=== PATIENT | male | born 1970 | race Caucasian/White ===

== ENCOUNTER 2018-07-11 00:01 | Emergency (ER) | payer OTHER ==
[~2018-07-11] VITALS: Ht 177.8 cm; Wt 134.0 kg
[2018-07-11 00:04] VITALS: TEMP 37; Ht 177.8 cm; Wt 134.0 kg
[2018-07-11] MEDS ORDERED: SODIUM CHLORIDE 0.9% 1000ML 1,000 ML IV STA (00:26)
[2018-07-11 00:51] LABS: BASO % 0.4 %; BASO ABS # 0.03 K/uL (0-0.2); EOS % 1.9 %; EOS ABS # 0.14 K/uL (0-0.5); HEMATOCRIT 46.7 % (42-52); HEMOGLOBIN 16.5 g/dL (14.0-18.0); IG# 0.04 K/uL (0.00-0.02); LYMPH ABS # 2.17 K/uL (1.2-3.4); MEAN CORPUSCULAR HEMOGLOBIN 30.4 pg (25-34); MEAN CORPUSCULAR HGB CONC 35.3 g/dl (32-36); MEAN PLATELET VOLUME 9.9 fL (7.4-10.4); MONO % 5.3 %; NEUT % 62.9 %; NEUT ABS # 4.71 K/uL (1.4-6.5); PLATELET COUNT 207 K/uL (130-400); RED CELL DISTRIBUTION WIDTH SD 40.5 fL (36.4-46.3); WHITE BLOOD COUNT 7.49 K/uL (4.8-10.8)
[2018-07-11 01:19] LABS: ALBUMIN 3.3 gm/dl (3.4-5.0); ALKALINE PHOSPHATASE 74 U/L (45-117); ALT/SGPT 34 U/L (12-78); AST/SGOT 15 U/L (15-37); BLOOD UREA NITROGEN 14 mg/dl (7-18); CALCIUM 8.6 mg/dl (8.5-10.1); CARBON DIOXIDE 21 mmol/L (21-32); CREATININE 0.86 mg/dl (0.60-1.40); GLUCOSE 347 mg/dl (70-99); LIPASE 151 U/L (73-393); POTASSIUM 3.7 mmol/L (3.5-5.1); SODIUM 138 mmol/L (136-145); TOTAL PROTEIN 7.3 gm/dl (6.4-8.2)
--- NOTE | 2018-07-11 04:49 | EMERGENCY ROOM VISIT NOTE ---
History First contact with patient: 00:13 Chief Complaint: HYPERGLYCEMIA Stated Complaint: HIGH BLOOD SUGAR Nursing Triage Summary: patient BSG at work was 315. patient states he has no medication to take for his diabetes. patient moved here from [place] six months ago and never got a fmd to manage his diabetes. patient thinks he took metformin previously. History of Present Illness The patient is a 48 year old male who presents to the Emergency Room with complaints of feeling lightheaded who has been out of his blood pressure and diabetes meds for past 6 months. 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 He did not get in with family care to renew his medications. He checked his blood sugar at the present was 300. He did this as he felt lightheaded. Patient denies chest pain, dyspnea, fever, chills, cough, congestion, abdominal pain, polydipsia, polyuria, leg pain or swelling, flulike illness. He is tolerating p.o. fluids and food. Patient is unsure what medications he was taking. Review of Systems An 10 system review of systems was completed with positives and pertinent negatives listed in the HPI. Past Medical/Surgical History Hypertension, diabetes, hernia repair Social History Smoking Status: Never Smoker Smokeless Tobacco Use: No Alcohol Use: occasionally Drug Use: none Marital Status: single Occupation Status: employed Current/Historical Medications No Active Prescriptions or Reported Meds Physical Exam Vital Signs Date Time Temp Pulse Resp B/P (MAP) Pulse Ox O2 Delivery O2 Flow Rate FiO2 07/11/18 04:19 79 18 172/89 97 Room Air 07/11/18 02:31 84 18 152/75 98 Room Air 07/11/18 01:19 99 18 153/99 97 Room Air 07/11/18 01:05 89 07/11/18 00:04 37.0 20 96 168/99 96 Room Air Physical Exam VITALS: Vitals are noted on the nurse's note and reviewed by myself. Vital signs hypertensive. GENERAL: White male answering questions appropriately, in no acute distress, nondiaphoretic, well-developed well-nourished. SKIN: The skin was without rashes, erythema, edema, or bruising. There is no tenting of the skin. Capillary reflex less than 2 seconds. HEAD: Normocephalic atraumatic. EARS: External auditory canals clear, tympanic membranes pearly pritchard without erythema or effusion bilaterally. EYES: Pupils equal round and reactive to light and accommodation. Conjunctivae without injection, sclerae without icterus. Extraocular movements intact. NOSE: Patent, turbinates without inflammation or discharge. No sinus tenderness. MOUTH: Mucous membranes moist. Pharynx without erythema or exudate. Uvula midline. Airway patent. Tongue does not deviate. NECK: Supple without nuchal rigidity. No lymphadenopathy. No thyromegaly. Cervical spine is nontender. No JVD. HEART: Regular rate and rhythm LUNGS: Clear to auscultation bilaterally without wheezes, rales or rhonchi. No retractions or accessory muscle use. ABDOMEN: Positive bowel sounds x 4. Normal tympanic percussion. Soft, protuberant, obese, nontender, without masses or organomegaly. Holguin sign negative. No guarding or rebound tenderness. No CVA tenderness MUSCULOSKELETAL: No muscle atrophy, erythema, or edema noted. NEURO: Patient was alert and oriented to person place and time. Normal sensation to light and sharp touch. No focal neurological deficits. Medical Decision & Procedures Laboratory Results 07/11/18 00:37 Red Blood Count 5.43, Mean Corpuscular Volume 86.0, Mean Corpuscular Hemoglobin 30.4, Mean Corpuscular Hemoglobin Concent 35.3, Mean Platelet Volume 9.9, Neutrophils (%) (Auto) 62.9, Lymphocytes (%) (Auto) 29.0, Monocytes (%) (Auto) 5.3, Eosinophils (%) (Auto) 1.9, Basophils (%) (Auto) 0.4, Neutrophils # (Auto) 4.71, Lymphocytes # (Auto) 2.17, Monocytes # (Auto) 0.40, Eosinophils # (Auto) 0.14, Basophils # (Auto) 0.03 07/11/18 00:37 Test 07/11/18 00:37 07/11/18 02:28 07/11/18 02:54 07/11/18 03:48 White Blood Count 7.49 K/uL (4.8-10.8) Red Blood Count 5.43 M/uL (4.7-6.1) Hemoglobin 16.5 g/dL (14.0-18.0) Hematocrit 46.7 % (42-52) Mean Corpuscular Volume 86.0 fL (80-100) Mean Corpuscular Hemoglobin 30.4 pg (25-34) Mean Corpuscular Hemoglobin Concent 35.3 g/dl (32-36) Platelet Count 207 K/uL (130-400) Mean Platelet Volume 9.9 fL (7.4-10.4) Neutrophils (%) (Auto) 62.9 % Lymphocytes (%) (Auto) 29.0 % Monocytes (%) (Auto) 5.3 % Eosinophils (%) (Auto) 1.9 % Basophils (%) (Auto) 0.4 % Neutrophils # (Auto) 4.71 K/uL (1.4-6.5) Lymphocytes # (Auto) 2.17 K/uL (1.2-3.4) Monocytes # (Auto) 0.40 K/uL (0.11-0.59) Eosinophils # (Auto) 0.14 K/uL (0-0.5) Basophils # (Auto) 0.03 K/uL (0-0.2) RDW Standard Deviation 40.5 fL (36.4-46.3) RDW Coefficient of Variation 13.0 % (11.5-14.5) Immature Granulocyte % (Auto) 0.5 % Immature Granulocyte # (Auto) 0.04 K/uL (0.00-0.02) Anion Gap 13.0 mmol/L (3-11) Est Creatinine Clear Calc Drug Dose 143.1 ml/min Estimated GFR () 118.0 Estimated GFR (Non- 101.8 BUN/Creatinine Ratio 15.8 (10-20) Calcium Level 8.6 mg/dl (8.5-10.1) Total Bilirubin 0.5 mg/dl (0.2-1) Direct Bilirubin 0.1 mg/dl (0-0.2) Aspartate Amino Transf (AST/SGOT) 15 U/L (15-37) Alanine Aminotransferase (ALT/SGPT) 34 U/L (12-78) Alkaline Phosphatase 74 U/L (45-117) Troponin I < 0.015 ng/ml (0-0.045) Total Protein 7.3 gm/dl (6.4-8.2) Albumin 3.3 gm/dl (3.4-5.0) Lipase 151 U/L (73-393) Beta-Hydroxybutyric Acid 6.51 mg/dL (0.2-2.81) Bedside Glucose 272 mg/dl (70-99) Venous Blood pH 7.42 (7.36-7.41) Venous Blood Partial Pressure CO2 38 mmHg (38.0-50.0) Venous Blood Partial Pressure O2 71 mmHg Venous Blood HCO3 24 mmol/L Venous Blood Oxygen Saturation 94.4 % Venous Blood Base Excess -0.1 mEq/L Bedside Troponin I < 0.030 ng/ml (0-0.045) Medications Administered Medications (Trade) Dose Ordered Sig/Stefany Route Start Time Stop Time Status Last Admin Dose Admin Sodium Chloride 1,000 ml @ 999 mls/hr Q1H1M STAT IV 07/11/18 00:26 07/11/18 01:26 DC 07/11/18 00:26 999 MLS/HR ED Course Prior records/ancillary studies reviewed and summarized above. Nursing notes reviewed. The patient's history was concerning for lightheadedness with hyperglycemia. Differential diagnosis: Etiologies such as metabolic, infection, hypo/hyperglycemia, electrolyte abnormalities, cardiac sources, intracerebral event, toxicologic, neurologic, as well as others were entertained. Physical examination: As above. ER treatment provided: IV Lock IV fluids On reassessment the patient felt better. Diagnostics interpretation by me: ECG: Normal sinus, normal intervals, no acute ST-T wave changes. Left axis deviation, rate of 87. Impression normal sinus rhythm with a left axis deviation interpreted by myself. I think arrhythmia is unlikely. EKG shows normal sinus rhythm with no interval abnormalities such as QT prolongation or WPW. There are no findings to suggest Brugada syndrome. Cardiac monitoring in the emergency department reveals no tachycardic or bradycardic dysrhythmia. Hypertrophic cardiomyopathy was considered but there are no clear historical elements pointing toward this. EKG is not suggestive. The QRS voltage is not extremely large and there are no suggestive Q waves. The labs revealed 2 negative troponins. Hyperglycemia without DKA. Repeat blood sugar is improved after being hydrated. Imaging studies: Chest x-ray with no acute consolidation, pneumothorax free of my interpretation Exam and history seem consistent with uncontrolled diabetes and hypertension. Patient was stressed the importance of taking his medications as directed. He was unsure what medications he used to take so I could not refill them for him. He states he will see the [facility] Thursday morning and is agreeable to this. Patient's blood pressure was elevated. He was asymptomatic. He was in hyperglycemia without DKA. Repeat blood sugars improved. VBG was stable. No pneumonia on x-ray. Normal EKG. 2 negative troponins. By the evaluation outlined above emergent etiologies such as infection, cardiac sources, intracerebral event, toxologic, neurologic, metabolic, as well as others were deemed relatively unlikely. The pt informed about the findings as listed above. All questions were answered and pleased with the treatment. Return instructions were outlined and the patient was discharged in stable condition. Referral: The patient was referred back to primary care physician for follow-up in 2 to 3 days for a recheck of the current condition. Case reviewed with my attending The chart was completed utilizing [employer] Speech voice recognition software. Grammatical errors, random word insertions, pronoun errors, and incomplete sentences are an occassional consequence of this system due to software limitations, ambient noise, and hardware issues. Any formal questions or concerns about the content, text, or information contained within the body of this dictation should be directly addressed to the physician human resources benefits assistant for clarification. Medical Decision As above Blood Pressure Screening Patient's blood pressure: Elevated blood pressure Blood pressure disposition: Referred to PCP Impression Primary Impression: Lightheadedness Additional Impression: Diabetes mellitus with hyperglycemia Departure Information Dispostion Home / Self-Care Condition GOOD Prescriptions No Active Prescriptions or Reported Meds Referrals No Doctor, Assigned (PCP) Patient Instructions [facility] Additional Instructions You need to renew your diabetes and blood pressure medications with your family care doctor. Thursday call the [facility] clinic and make an appointment. Ibuprofen(Motrin, Advil) may be used for fever or pain. Use 600mg every six hours as needed. Take with food. Avoid using more than 2400mg in a 24 hour period. Do not use 2400mg per day for more than three consecutive days without physician direction. Prolonged inappropriate use can lead to stomach upset or ulcers. (AND/OR) Acetaminophen(Tylenol) may be used for fever or pain. Use 1000mg every six hours as needed. Avoid using more than 3000mg in a 24 hour period. Rest and drink plenty of fluids as tolerated. Continue current medications. Return to the ER immediately for worsening or persistent lightheadedness, abdominal pain, vomiting, fevers, chest pains, difficulty breathing, worsening of your condition, or as needed. Follow up with primary physician Saw morning for a recheck of your current condition. Problem Qualifiers
[2018-07-11] MEDS ORDERED: METFTAB PO (04:50)
[2018-07-11 05:08] VITALS: BP 160/93; PULSE 81; O2SAT 97
--- NOTE | 2018-07-11 07:58 | DIAGNOSTIC IMAGING REPORT ---
CHEST ONE VIEW PORTABLE CLINICAL HISTORY: Chest pain. Hyperglycemia. COMPARISON STUDY: No previous studies for comparison. FINDINGS: Lung volumes are normal. No consolidation is identified. There is no pneumothorax or pleural effusion. Cardiac size is normal. Mediastinal contours are normal. There is no evidence for pulmonary edema. IMPRESSION: No acute cardiopulmonary findings. Electronically signed by: Mahin Menchaca M.D. 07/11/2018 7:57 AM Dictated Date/Time: 07/11/2018 7:56 AM
== END 2018-07-11 05:18 | disposition home or self-care (01) ==
LOC: C.EDB 00:02 → C.EDA 05:18
DX: E11.65 Type 2 diabetes mellitus with hyperglycemia (principal); I10 Essential (primary) hypertension; Z98.890 Other specified postprocedural states

== ENCOUNTER 2020-09-01 13:21 | Observation (INO) ==
[2020-09-01] MEDS ORDERED: KETOROLAC 30 MG/ML VIAL IV ONE (13:53)
[2020-09-01] MEDS ORDERED: SODIUM CHLORIDE 0.9% 1000ML 1,000 ML IV ONE ×2 (13:53→16:27)
--- NOTE | 2020-09-01 14:22 | Emergency Department Note ---
History of Present Illness General Chief complaint: Wound Stated complaint: BOIL ON BUTTOCK Time Seen by Provider: 09/01/20 13:35 History of Present Illness Maximum Pain Intensity: 7 50-year-old male who presents to the emergency department for evaluation of a boil on his right buttock. The patient reports that he noticed a pimple there approximately 4 days ago. Since that time, the patient has had progressively and quickly developing swelling, pain and redness. The patient now reports that the wound is copiously draining. The patient was seen at the [facility] urgent care [place] and referred to the emergency department for IV antibiotics and further work-up. The patient is a [id number] type II diabetic. The patient has had a prior history of lower extremity cellulitis, otherwise denies prior history of other frequent wound infections or antibiotic resistant i nfections. The patient reports that he has had some chills, but has not checked his temperature. He denies any pain around the rectum or with bowel movement. He denies any urinary symptoms, pelvic or abdominal pain. The patient rates his discomfort a 7 out of 10. Home Medications Home Medications Medication Instructions Recorded Confirmed Type atorvastatin 40 mg tablet 40 mg PO DAILY #90 tab 03/31/19 09/01/20 History lisinopril 10 mg tablet 10 mg PO DAILY 04/22/19 09/01/20 History empagliflozin 10 mg tablet 10 mg PO DAILY #30 tab 04/25/19 09/01/20 History glimepiride 4 mg tablet 4 mg PO DAILY #90 tab 04/25/19 09/01/20 History metformin 500 mg tablet 1,000 mg PO BID #360 tab 04/25/19 09/01/20 History Allergies Allergy/AdvReac Type Severity Reaction Status Date / Time Penicillins Allergy Unknown swelling Verified 09/01/20 14:33 Past Med/Surg History Medical History (Updated 09/01/20 @ 16:42 by Maksim Sy) Hyperlipidemia Hypertension Low back pain Uncontrolled diabetes mellitus, without long-term current use of insulin Surgical History (Updated 09/01/20 @ 16:45 by Maksim Sy) No significant past surgical history Family History Other Diabetes Social History Smoking Status: Former smoker marital status: Single current occupational status: employed Feels Safe at Home: Yes Review of Systems 10 system review was performed and was negative except for pertinent positives and negatives as indicated in history of present illness Physical Exam Vital Signs Vital Signs - 24 hr 09/01/20 13:29 09/01/20 14:35 09/01/20 14:40 Temperature 37.1 C Temperature Source Oral Pulse Rate 99 H 80 82 Pulse Rate [Apical] 80 Pulse Rate from SpO2 Sensor 81 82 Respiratory Rate 18 20 18 Respiratory Effort / Characteristics Non-Labored Spontaneous Non-Labored Spontaneous Respiratory Depth Normal Normal Respiratory Pattern Regular Regular Blood Pressure 173/103 H 163/71 H Blood Pressure [Right Arm] 163/71 H Blood Pressure Mean 126 92 Blood Pressure Mean [Right Arm] 101 Blood Pressure Position Sitting Pulse Oximetry 97 96 95 Oxygen Delivery Method Room Air Room Air Sepsis Recent Fever Within 48 Hours No Sepsis New/Unexplained Change in Mental Status N/A Sepsis Action Taken by Nursing No Action Required 09/01/20 15:00 09/01/20 15:30 09/01/20 15:31 Temperature Temperature Source Pulse Rate 83 77 79 Pulse Rate [Apical] Pulse Rate from SpO2 Sensor 83 77 79 Respiratory Rate 19 23 21 Respiratory Effort / Characteristics Respiratory Depth Respiratory Pattern Blood Pressure 152/69 H 162/78 H Blood Pressure [Right Arm] Blood Pressure Mean 81 104 Blood Pressure Mean [Right Arm] Blood Pressure Position Pulse Oximetry 96 97 97 Oxygen Delivery Method Sepsis Recent Fever Within 48 Hours Sepsis New/Unexplained Change in Mental Status Sepsis Action Taken by Nursing 09/01/20 16:00 09/01/20 16:30 Temperature Temperature Source Pulse Rate 82 77 Pulse Rate [Apical] Pulse Rate from SpO2 Sensor 82 77 Respiratory Rate 20 20 Respiratory Effort / Characteristics Respiratory Depth Respiratory Pattern Blood Pressure 164/80 H 159/84 H Blood Pressure [Right Arm] Blood Pressure Mean 99 104 Blood Pressure Mean [Right Arm] Blood Pressure Position Pulse Oximetry 97 98 Oxygen Delivery Method Sepsis Recent Fever Within 48 Hours Sepsis New/Unexplained Change in Mental Status Sepsis Action Taken by Nursing CONSTITUTIONAL: Obese male, alert and oriented X 3. Patient appears in mild discomfort. HEENT: Normocephalic, atraumatic. No scleral icterus or conjunctival injection/pallor. NECK: Full active range of motion without discomfort. LYMPHATICS: No cervical chain adenopathy. RESPIRATORY: Clear to auscultation bilaterally with no wheezing, crackles, rhonchi or stridor. CARDIOVASCULAR: Regular rate and rhythm with no murmurs, rubs or gallops. GASTROINTESTINAL: Bowel sounds present in all quadrants. Abdomen is soft and nontender to palpation. MUSCULOSKELETAL: Full range of motion of all joints without discomfort. Negative logroll of the hips. INTEGUMENTARY: Examination of the right buttock shows a large indurated mass with desquamation of the posterior buttock. Some mild skin breakdown is noted. No obvious purulent drainage can be expressed. Further examination does show erythema and soft tissue edema extending to the perineum. Patient has no perirectal tenderness to palpation. HEMATOLOGIC: No ecchymosis or petechiae. PSYCHIATRIC: Positive affect. NEUROLOGIC: No focal neurologic deficits noted. Course Course Patient history and physical exam were performed. Nurse's notes were reviewed. Vital signs were reviewed, showing an initial blood pressure 173/103. The patient is afebrile with a heart rate of 99 bpm. IV access was established, and labs were drawn, including blood cultures x2. Surface cultures were also collected and ordered. The patient was hydrated with a liter normal saline, and administered IV Toradol for pain. Review of labs shows elevated CRP and sed rate, otherwise white count and CMP are normal. Glucose is 281. CT of the pelvis with IV contrast does not show evidence for abscess formation, or further extension into the pelvic, perianal or perineal region. Findings were discussed with the patient. I also discussed the case with Dr. Herndon, ED attending physician, who evaluated the patient and also recommends hospitalist evaluation. The patient was requesting something stronger for pain, and was administered IV morphine. The patient was also ordered daptomycin and Zosyn IV antibiotics. It is noted that the patient has a childhood history of penicillin allergy (swelling) that he reports was administered after incurring bee stings. The patient believes that he has taken other similar antibiotics such as amoxicillin in the past without adverse reaction. The case was discussed with Dr. Hernandez, [facility] hospitalist, who will evaluate the patient. He has also asked that I discussed the case with general surgery. The case was also discussed with Dr. Potter who will also evaluate the patient. Please see their dictations for further treatment and final disposition. Administered Medications Sodium Chloride (Nss 1000ml) 1,000 mls @ 999 mls/hr IV .Q1H1M ONE Stop: 09/01/20 17:27 Last Admin: 09/01/20 16:43 Dose: 999 mls/hr Documented by: [id number] Discontinued Medications Sodium Chloride (Nss 1000ml) 1,000 mls @ 999 mls/hr IV .Q1H1M ONE Stop: 09/01/20 14:53 Last Infusion: 09/01/20 15:35 Dose: 0 mls/hr Documented by: [id number] Admin: 09/01/20 14:33 Dose: 999 mls/hr Documented by: [id number] Piperacillin Sod/Tazobactam Sod (Zosyn) 4.5 gm in 120 mls @ 240 mls/hr IV NOW ONE Stop: 09/01/20 16:47 Last Admin: 09/01/20 16:47 Dose: 240 mls/hr Documented by: [id number] Daptomycin 275 mg/ Syringe 5.5 mls @ 2.75 mls/min IV NOW ONE; Protocol Stop: 09/01/20 16:19 Last Admin: 09/01/20 16:45 Dose: 2.75 mls/min Documented by: [id number] Ioversol (Ioversol 100ml) 94 ml IV ONCE ONE Stop: 09/01/20 15:43 Last Admin: 09/01/20 15:42 Dose: 94 ml Documented by: [id number] Ketorolac Tromethamine (Ketorolac 30 Mg/Ml Vial) 30 mg IV NOW ONE Stop: 09/01/20 13:54 Last Admin: 09/01/20 14:33 Dose: 30 mg Documented by: [id number] Morphine Sulfate (Morphine Sulfate 4 Mg/Ml 1 Ml Carp\Vial) 4 mg IV NOW STA Stop: 09/01/20 16:27 Last Admin: 09/01/20 16:43 Dose: 4 mg Documented by: [id number] Medical Decision Making Medical Records Attestation: I reviewed the patient's medical records. Home Medications Current Medication List: was personally reviewed by me Laboratory Data Attestation: I reviewed the patient's lab results. Result diagrams: 09/01/20 14:17 09/01/20 14:17 Lab Results 09/01/20 09/01/20 09/01/20 Range/Units 14:17 14:17 14:17 WBC 6.92 (4.8-10.8) K/uL RBC 5.03 (4.7-6.1) M/uL Hgb 15.4 (14.0-18.0) g/dL Hct 43.8 (42-52) % MCV 87.1 (80-100) fL MCH 30.6 (25-34) pg MCHC 35.2 (32-36) g/dL RDW Std Deviation 41.4 (36.4-46.3) fL RDW Coeff of Jordyn 12.9 (11.5-14.5) % Plt Count 231 (130-400) K/uL MPV 9.1 (7.4-10.4) fL Immature Gran % (Auto) 1.4 % Neut % (Auto) 66.3 % Lymph % (Auto) 18.9 % [place] % (Auto) 10.3 % Eos % (Auto) 2.7 % Baso % (Auto) 0.4 % Neut # (Auto) 4.58 (1.4-6.5) K/uL Lymph # (Auto) 1.31 (1.2-3.4) K/uL [place] # (Auto) 0.71 H (0.11-0.59) K/uL Eos # (Auto) 0.19 (0-0.5) K/uL Baso # (Auto) 0.03 (0-0.2) K/uL Immature Gran # (Auto) 0.10 H (0.00-0.02) K/uL ESR 55 H (0-14) mm/hr Sodium 136 (136-145) mmol/L Potassium 3.8 (3.5-5.1) mmol/L Chloride 104 (98-107) mmol/L Carbon Dioxide 26 (21-32) mmol/L Anion Gap 6.0 (3-11) BUN 10 (7-18) mg/dl Creatinine 0.67 (0.6-1.4) mg/dl Est Cr Clr Drug Dosing 154.7 ml/min Est GFR ( Amer) 128.9 Est GFR (Non-Af Amer) 111.3 BUN/Creatinine Ratio 14.3 (10-20) Glucose 281 H (70-99) mg/dl Lactate (0.4-2.0) mmol/L Calcium 9.2 (8.5-10.1) mg/dl Total Bilirubin 0.7 (0.2-1) mg/dl AST 22 (15-37) U/L ALT 28 (12-78) U/L Alkaline Phosphatase 74 (45-117) U/L C-Reactive Protein 11.00 H (0-0.29) mg/dl Total Protein 7.3 (6.4-8.2) gm/dl Albumin 2.7 L (3.4-5.0) gm/dl Globulin 4.6 H (2.5-4.0) gm/dl Albumin/Globulin Ratio 0.6 L (0.9-2) Procalcitonin (0-0.5) ng/ml 09/01/20 09/01/20 Range/Units 14:17 14:17 WBC (4.8-10.8) K/uL RBC (4.7-6.1) M/uL Hgb (14.0-18.0) g/dL Hct (42-52) % MCV (80-100) fL MCH (25-34) pg MCHC (32-36) g/dL RDW Std Deviation (36.4-46.3) fL RDW Coeff of Jordyn (11.5-14.5) % Plt Count (130-400) K/uL MPV (7.4-10.4) fL Immature Gran % (Auto) % Neut % (Auto) % Lymph % (Auto) % [place] % (Auto) % Eos % (Auto) % Baso % (Auto) % Neut # (Auto) (1.4-6.5) K/uL Lymph # (Auto) (1.2-3.4) K/uL [place] # (Auto) (0.11-0.59) K/uL Eos # (Auto) (0-0.5) K/uL Baso # (Auto) (0-0.2) K/uL Immature Gran # (Auto) (0.00-0.02) K/uL ESR (0-14) mm/hr Sodium (136-145) mmol/L Potassium (3.5-5.1) mmol/L Chloride (98-107) mmol/L Carbon Dioxide (21-32) mmol/L Anion Gap (3-11) BUN (7-18) mg/dl Creatinine (0.6-1.4) mg/dl Est Cr Clr Drug Dosing ml/min Est GFR ( Amer) Est GFR (Non-Af Amer) BUN/Creatinine Ratio (10-20) Glucose (70-99) mg/dl Lactate 1.0 (0.4-2.0) mmol/L Calcium (8.5-10.1) mg/dl Total Bilirubin (0.2-1) mg/dl AST (15-37) U/L ALT (12-78) U/L Alkaline Phosphatase (45-117) U/L C-Reactive Protein (0-0.29) mg/dl Total Protein (6.4-8.2) gm/dl Albumin (3.4-5.0) gm/dl Globulin (2.5-4.0) gm/dl Albumin/Globulin Ratio (0.9-2) Procalcitonin 0.12 (0-0.5) ng/ml Imaging Data Attestation: I personally reviewed and interpreted this imaging study as follows: My Impression: My interpretation of a noncontrast CT of the pelvis does not show any abscess formation or extension into the deeper pelvic tissue, perineum or perianal region. Radiologist report was also reviewed. Radiologist's Impression: CT pelvis w/IV con only CLINICAL HISTORY: R buttock abscess, erythema extending to perineum COMPARISON STUDY: No previous studies for comparison. TECHNIQUE: Axial images of the pelvis were obtained following intravenous injection of 94 cc of Optiray 320 IV. Sagittal and coronal reconstructions were viewed.Automated exposure control was utilized for the study. A dose lowering technique was utilized adhering to the principles of ALARA. FINDINGS: The appendix is surgically absent. Postoperative findings from umbilical hernia repair are noted. Bladder is distended. Caliber and wall thickness of the visualized small and large bowel are normal. There is a small fat-containing left inguinal hernia. Sacroiliac joints and symphysis pubis are intact. No soft tissue gas is present. Note is made of a 6.3 x 3.2 cm subcutaneous focus of inflammation within the inferior right buttock. There is associated skin thickening. There is no fluid collection to suggest an abscess. No perirectal or perianal abscess is noted. No perirectal or perianal fistulas identified. No additional sites of inflammation are identified within the pelvis. There are no suspicious osseous lesions. IMPRESSION: 6.3 x 3.2 cm subcutaneous focus of inflammation within the inferior right buttock with associated skin thickening. These findings are consistent with cellulitis. No fluid collection to suggest abscess. Blood Pressure Blood Pressure Findings: Elevated blood pressure MDM Narrative Patient has an extensive buttock cellulitis that warrants IV antibiotics. Given the patient's history I am diabetes and significant worsening over the past 4 days, I do feel that hospitalist evaluation is warranted. At this point, I do not suspect surgical intervention will be required unless the patient does form an abscess. There does not appear to be any CT evidence for Renita's gangrene. The patient is afebrile of any significant leukocytosis. Sed rate and CRP are markedly elevated. The patient has remained hemodynamically stable while in the emergency department. I currently do not suspect sepsis, and both procalcitonin and lactate are normal. Impression & Plan Cellulitis of right buttock, Type 2 diabetes mellitus Discharge Plan Visit Data Chief Complaint: Wound Stated Complaint: BOIL ON BUTTOCK ED Provider: Wilfredo Herndon ED Midlevel Provider: Maksim Sy Discharge Problem: Cellulitis of right buttock, Type 2 diabetes mellitus Forms Stand Alone Forms: My [facility] Prescriptions Prescriptions: No Action atorvastatin 40 mg tablet 40 mg PO DAILY Qty: 90 RF: 0 lisinopril 10 mg tablet 10 mg PO DAILY RF: 0 empagliflozin 10 mg tablet 10 mg PO DAILY Qty: 30 RF: 0 glimepiride 4 mg tablet 4 mg PO DAILY Qty: 90 RF: 0 metformin 500 mg tablet 1,000 mg PO BID Qty: 360 RF: 0
[2020-09-01 14:28] LABS: Basophils # (auto) 0.03 K/uL (0-0.2); Basophils % (auto) 0.4 %; Eosinophils # (auto) 0.19 K/uL (0-0.5); Eosinophils % (auto) 2.7 %; Hematocrit (blood only) 43.8 % (42-52); Hemoglobin 15.4 g/dL (14.0-18.0); Immature Granulocytes % (auto) 1.4 %; Lymphocytes # (auto) 1.31 K/uL (1.2-3.4); Lymphocytes % (auto) 18.9 %; Mean Corpuscular Hemoglobin 30.6 pg (25-34); Mean Corpuscular Hgb Conc 35.2 g/dL (32-36); Mean Corpuscular Volume 87.1 fL (80-100); Mean Platelet Volume 9.1 fL (7.4-10.4); Monocytes # (auto) 0.71 K/uL (0.11-0.59); Monocytes % (auto) 10.3 %; Neutrophils # (auto) 4.58 K/uL (1.4-6.5); Neutrophils % (auto) 66.3 %; Platelet Count 231 K/uL (130-400); RDW Coefficient of Variation 12.9 % (11.5-14.5); RDW Standard Deviation 41.4 fL (36.4-46.3); Red Blood Count 5.03 M/uL (4.7-6.1); White Blood Count 6.92 K/uL (4.8-10.8)
[2020-09-01 14:46] LABS: Albumin Level 2.7 gm/dl (3.4-5.0); BUN Creatinine Ratio 14.3 (10-20); Calcium 9.2 mg/dl (8.5-10.1); Creatinine Clr Calc Pharmacy 154.7 ml/min; Est GFR (African American) 128.9; Est GFR (Non-African American) 111.3; Potassium 3.8 mmol/L (3.5-5.1)
[2020-09-01 14:48] LABS: Albumin Globulin Ratio 0.6 (0.9-2); Bilirubin,Total 0.7 mg/dl (0.2-1); Globulin 4.6 gm/dl (2.5-4.0); Total Protein 7.3 gm/dl (6.4-8.2)
[2020-09-01] MEDS ORDERED: IOVERSOL 100ml IV ONE (15:42)
--- NOTE | 2020-09-01 15:57 | CT Scan Report ---
CT pelvis w/IV con only CLINICAL HISTORY: R buttock abscess, erythema extending to perineum COMPARISON STUDY: No previous studies for comparison. TECHNIQUE: Axial images of the pelvis were obtained following intravenous injection of 94 cc of Optir ay 320 IV. Sagittal and coronal reconstructions were viewed.Automated exposure control was utilized f or the study. A dose lowering technique was utilized adhering to the principles of ALARA. FINDINGS: The appendix is surgically absent. Postoperative findings from umbilical hernia repair are noted. Bladder is distended. Caliber and wall thickness of the visualized small and large bowel are n ormal. There is a small fat-containing left inguinal hernia. Sacroiliac joints and symphysis pubis ar e intact. No soft tissue gas is present. Note is made of a 6.3 x 3.2 cm subcutaneous focus of inflamm ation within the inferior right buttock. There is associated skin thickening. There is no fluid colle ction to suggest an abscess. No perirectal or perianal abscess is noted. No perirectal or perianal fi stulas identified. No additional sites of inflammation are identified within the pelvis. There are no suspicious osseous lesions. IMPRESSION: 6.3 x 3.2 cm subcutaneous focus of inflammation within the inferior right buttock with a ssociated skin thickening. These findings are consistent with cellulitis. No fluid collection to sugg est abscess. ACT 112: Negative or not required by law. Electronically signed by: Mahin Menchaca M.D. 09/01/2020 3:56 PM
[2020-09-01] MEDS ORDERED: PIPERACILL/TAZOBAC CONSULT ACTIVE PRN (16:18)
[2020-09-01] MEDS ORDERED: DAPTOMYCIN CONSULT ACTIVE PRN (16:18)
[2020-09-01] MEDS ORDERED: DAPTOmycin 275 MG in SYRINGE 0 ML IV ONE (16:18)
[2020-09-01] MEDS ORDERED: PIPERACILLIN/TAZOBACTAM 4.5 GM/120 ML BAG IV ONE (16:18)
[2020-09-01] MEDS ORDERED: MoRPHine SULFATE 4 MG/ML 1 ML CARP\\VIAL IV STA (16:26)
--- NOTE | 2020-09-01 18:14 | History & Physical Report ---
Date of Service September 01, 2020 History of Present Illness Primary Care Provider: SANDIE Murray Torito Liao is a 50y/o M with PMH significant for T2DM, HTN, and HLD; who presented to the emergency department for concern for a wound on his behind that had been there over the previous four days. Four days ago, he initially noticed that his behind is sore and he noticed that this was more tender to touch and slightly warm. Then the following day he started to notice some clear discharge, with progression of this fluid into some white appearing discharge that sent him to [facility] where he was then sent to the hospital for IV antibiotics. Has no history of MRSA infections, no history of boils or abscesses that required to be opened or removed. No previous history of similar infections. Social history: smokeless tobacco user, no alcohol, no recreational or illict drug use Sexual history: no h/o STIs/HIV, 3 sexual partners in last 10 years (female only) Allergies Allergy/AdvReac Type Severity Reaction Status Date / Time Penicillins Allergy Unknown swelling Verified 09/01/20 14:33 Home Medications Home Medications Medication Instructions Recorded Confirmed Type atorvastatin 40 mg tablet 40 mg PO DAILY #90 tab 03/31/19 09/01/20 History lisinopril 10 mg tablet 10 mg PO DAILY 04/22/19 09/01/20 History empagliflozin 10 mg tablet 10 mg PO DAILY #30 tab 04/25/19 09/01/20 History glimepiride 4 mg tablet 4 mg PO DAILY #90 tab 04/25/19 09/01/20 History metformin 500 mg tablet 1,000 mg PO BID #360 tab 04/25/19 09/01/20 History Past Med/Surg History Medical History (Updated 09/01/20 @ 18:25 by Roosevelt Potter MD) DVT (deep venous thrombosis) Hyperlipidemia Hypertension Low back pain Uncontrolled diabetes mellitus, without long-term current use of insulin Surgical History (Updated 09/01/20 @ 18:24 by Roosevelt Potter MD) S/P umbilical hernia repair, follow-up exam Family History Other Diabetes Social History Smoking Status: Never smoker Second Hand Exposure: No; Do You Dip or Chew Tobacco: Yes; Hx Alcohol Use: No Hx Substance Use: No Preferred Language: Mohawk Communication Ability: Effective Student Development Advisor Required: No Beliefs That Will Affect Care: None marital status: Single Current Living Situation: Other Current Living Situation Comment: lives with roomate and roomates fiance current occupational status: employed Other Information That Helps Us Care for You: No Feels Safe at Home: Yes Safety Concerns: Feels Safe At This Time Assistive Devices: Glasses Review of Systems Review of Systems: All systems reviewed & are unremarkable except as noted in HPI & below Physical Exam Constitutional: WD/WN, vitals as above Eyes: PERRL, conjunctivae normal, anicteric sclerae Respiratory: normal respiratory effort, lungs clear to auscultation Cardiovascular: Rate/Rhythm: regular rate and regular rhythm Heart Sounds: no gallop, no murmur and no cardiac rub Vessels: normal peripheral pulses; no JVD Gastrointestinal (Abdomen): normal bowel sounds, soft, nontender, no hepatosplenomegaly Skin: + ulcer and + induration right gluteal fold with erythema, induration, superficial ulceration, and appearance of granulation tissue, no purulent drainage expressed Psychiatric: Orientation: alert and oriented x 3 Results & Data Results & Data ([facility]) Vital Signs (Past 12 Hours) Vital Signs Temp Pulse Pulse Resp BP BP Pulse Ox 09/01/20 17:30 78 16 166/80 H 96 09/01/20 17:00 78 23 168/85 H 95 09/01/20 16:30 77 20 159/84 H 98 09/01/20 16:00 82 20 164/80 H 97 09/01/20 15:31 79 21 162/78 H 97 09/01/20 15:30 77 23 97 09/01/20 15:00 83 19 152/69 H 96 09/01/20 14:40 82 18 95 09/01/20 14:35 80 80 20 163/71 H 163/71 H 96 09/01/20 13:29 37.1 C 99 H 18 173/103 H 97 Laboratory Results 09/01/20 09/01/20 09/01/20 Range/Units 14:17 14:17 14:17 WBC (4.8-10.8) K/uL RBC (4.7-6.1) M/uL Hgb (14.0-18.0) g/dL Hct (42-52) % MCV (80-100) fL MCH (25-34) pg MCHC (32-36) g/dL RDW Std Deviation (36.4-46.3) fL RDW Coeff of Jordyn (11.5-14.5) % Plt Count (130-400) K/uL MPV (7.4-10.4) fL Immature Gran % (Auto) % Neut % (Auto) % Lymph % (Auto) % Putnam % (Auto) % Eos % (Auto) % Baso % (Auto) % Neut # (Auto) (1.4-6.5) K/uL Lymph # (Auto) (1.2-3.4) K/uL Putnam # (Auto) (0.11-0.59) K/uL Eos # (Auto) (0-0.5) K/uL Baso # (Auto) (0-0.2) K/uL Immature Gran # (Auto) (0.00-0.02) K/uL ESR (0-14) mm/hr Sodium 136 (136-145) mmol/L Potassium 3.8 (3.5-5.1) mmol/L Chloride 104 (98-107) mmol/L Carbon Dioxide 26 (21-32) mmol/L Anion Gap 6.0 (3-11) BUN 10 (7-18) mg/dl Creatinine 0.67 (0.6-1.4) mg/dl Est Cr Clr Drug Dosing 154.7 ml/min Est GFR ( Amer) 128.9 Est GFR (Non-Af Amer) 111.3 BUN/Creatinine Ratio 14.3 (10-20) Glucose 281 H (70-99) mg/dl Lactate 1.0 (0.4-2.0) mmol/L Calcium 9.2 (8.5-10.1) mg/dl Total Bilirubin 0.7 (0.2-1) mg/dl AST 22 (15-37) U/L ALT 28 (12-78) U/L Alkaline Phosphatase 74 (45-117) U/L C-Reactive Protein 11.00 H (0-0.29) mg/dl Total Protein 7.3 (6.4-8.2) gm/dl Albumin 2.7 L (3.4-5.0) gm/dl Globulin 4.6 H (2.5-4.0) gm/dl Albumin/Globulin Ratio 0.6 L (0.9-2) Procalcitonin 0.12 (0-0.5) ng/ml 09/01/20 09/01/20 Range/Units 14:17 14:17 WBC 6.92 (4.8-10.8) K/uL RBC 5.03 (4.7-6.1) M/uL Hgb 15.4 (14.0-18.0) g/dL Hct 43.8 (42-52) % MCV 87.1 (80-100) fL MCH 30.6 (25-34) pg MCHC 35.2 (32-36) g/dL RDW Std Deviation 41.4 (36.4-46.3) fL RDW Coeff of Jordyn 12.9 (11.5-14.5) % Plt Count 231 (130-400) K/uL MPV 9.1 (7.4-10.4) fL Immature Gran % (Auto) 1.4 % Neut % (Auto) 66.3 % Lymph % (Auto) 18.9 % Putnam % (Auto) 10.3 % Eos % (Auto) 2.7 % Baso % (Auto) 0.4 % Neut # (Auto) 4.58 (1.4-6.5) K/uL Lymph # (Auto) 1.31 (1.2-3.4) K/uL Putnam # (Auto) 0.71 H (0.11-0.59) K/uL Eos # (Auto) 0.19 (0-0.5) K/uL Baso # (Auto) 0.03 (0-0.2) K/uL Immature Gran # (Auto) 0.10 H (0.00-0.02) K/uL ESR 55 H (0-14) mm/hr Sodium (136-145) mmol/L Potassium (3.5-5.1) mmol/L Chloride (98-107) mmol/L Carbon Dioxide (21-32) mmol/L Anion Gap (3-11) BUN (7-18) mg/dl Creatinine (0.6-1.4) mg/dl Est Cr Clr Drug Dosing ml/min Est GFR ( Amer) Est GFR (Non-Af Amer) BUN/Creatinine Ratio (10-20) Glucose (70-99) mg/dl Lactate (0.4-2.0) mmol/L Calcium (8.5-10.1) mg/dl Total Bilirubin (0.2-1) mg/dl AST (15-37) U/L ALT (12-78) U/L Alkaline Phosphatase (45-117) U/L C-Reactive Protein (0-0.29) mg/dl Total Protein (6.4-8.2) gm/dl Albumin (3.4-5.0) gm/dl Globulin (2.5-4.0) gm/dl Albumin/Globulin Ratio (0.9-2) Procalcitonin (0-0.5) ng/ml Medications Administered Current Inpatient Medications Miscellaneous Information (Piperacill/Tazobac Consult Active) 1 ea N/A UD PRN PRN Reason: Consult Stop: 10/01/20 16:17 Miscellaneous Information (Daptomycin Consult Active) 1 ea N/A UD PRN PRN Reason: Consult Stop: 10/01/20 16:17 Supervising Physician Co-Signing Physician Notes Torito Liao is a 50y/o M with PMH significant for T2DM, HTN, and HLD; who presented to the emergency department for concern for a wound on his behind that had been there over the previous four days. Cellulitis: - granulation tissue over right gluteal fold - continue Daptomycin and Zosyn - Gen Surg consulted: no indication for surgical treatment at this time - CBC/BMP in AM T2DM: - hold home oral regimen - BSG ACHS - sliding scale insulin ordered - A1c in AM HTN: - continue lisinopril daily HLD: - continue Atorvastatin 40mg daily Code status: Full code DVT ppx: hold at this time Diet: Carb consistent diet ATTENDING ATTESTATION Patient seen and examined independently of PGY-2 Dr. Briscoe. Agree with history, exam findings, assessment and plan of care as outlined. In brief, Mr. Liao is a 50 year old male with history of diabetes (not at goal), HTN, HLD admitted with draining abscess with overlying cellulitis on the right buttock. + chills, but no fevers. Has been feeling a bit unwell. ED course reviewed. CT Pelvis without appreciable abscess. Started on Dapto and zosyn. No leukocytosis. Elevated ESR and CRP. VS, labs, imaging and nursing notes reviewed. On exam, he is lying on his side, non-toxic appearing. Right buttock with central open area with surrounding induration as well as erythema. Area is tender to the touch. Draining bloody fluid. 1. Abscess, spontaneously draining, with overlying cellulitis. Not able to express any discharge. Continue with dapto and zosyn. Wound care. Appreciate general surgerys recommendations. 2. DM2. A1C was 9.2 over 1 year ago. Suspect that he is not at goal with a random glucose yesterday in the 300s and today in the high 200s. Holding home metformin and glimepiride. Start sliding scale. Check A1C in the AM. Noted that he does have some GI issues with metformincould consider switching to metformin extended release after discharge. Discussed importance of adequate glucose control, especially in the setting of infections. Might benefit from a GLP-1 receptor agonist as an outpatient. 3. HLD. Continue home atorvastatin. 4. HTN. Continue home lisinopril 10mg. May need to up titrate if BPs are not well controlled. Dispo: pending clinical improvement. Will need close follow up with his PCP Resident Activity Tracking Resident Involvement: Resident Care Provided Care Provided: Adult Hospital Medicine
--- NOTE | 2020-09-01 18:23 | Surgery Consultation ---
Date of Consultation September 01, 2020 Assessment & Plan (1) Cellulitis of right buttock: I cleansed the area with Betadine and attempted to aspirate. There was no return. I doubt this is an abscess. The CT also suggested no evidence of a fluid collection. I would treat with intravenous antibiotics. Abscess could form so he will need to be surveilled. I do not feel that there is any need for immediate surgical intervention at this time. History of Present Illness Reason for Consultation: Right buttock cellulitis History of Present Illness I been asked by Dr. Briscoe to see this 50-year-old male who presented to the emergency room with pain in the right buttock area. The patient states that he had a little lump that he thought was a pimple at first. He is unsure as to exactly when he first noticed that it. It was anywhere from 3 to 6 days ago. The area of the pimple then became painful. It became erythematous and the area of discomfort increased in diameter. He then had what he described as a clear thick drainage. He had fever and nausea with the pain. He also had what he described this chills and felt feverish but did not take his temperature. He is never had anything similar to this in the past. He does not think he was bitten by anything. Allergies Allergy/AdvReac Type Severity Reaction Status Date / Time Penicillins Allergy Unknown swelling Verified 09/01/20 14:33 Home Medications Home Medications Medication Instructions Recorded Confirmed Type atorvastatin 40 mg tablet 40 mg PO DAILY #90 tab 03/31/19 09/01/20 History lisinopril 10 mg tablet 10 mg PO DAILY 04/22/19 09/01/20 History empagliflozin 10 mg tablet 10 mg PO DAILY #30 tab 04/25/19 09/01/20 History glimepiride 4 mg tablet 4 mg PO DAILY #90 tab 04/25/19 09/01/20 History metformin 500 mg tablet 1,000 mg PO BID #360 tab 04/25/19 09/01/20 History Patient History Medical History (Updated 09/01/20 @ 18:25 by Roosevelt Potter MD) DVT (deep venous thrombosis) Hyperlipidemia Hypertension Low back pain Uncontrolled diabetes mellitus, without long-term current use of insulin Surgical History (Updated 09/01/20 @ 18:24 by Roosevelt Potter MD) S/P umbilical hernia repair, follow-up exam Family History Other Diabetes Social History Smoking Status: Former smoker marital status: Single current occupational status: employed Feels Safe at Home: Yes Physical Exam Physical Exam: Buttock: There is an 8 x 5 cm area of erythema. It does not feel fluctuant. There is desquamation in the center. I cannot express any drainage. Constitutional: no acute distress Respiratory: normal respiratory effort, lungs clear to auscultation Cardiovascular: Rate/Rhythm: regular rate and regular rhythm Gastrointestinal (Abdomen): Inspection/Auscultation: normal bowel sounds; abdomen not distended Percussion/Palpation: abdomen soft; abdomen nontender Lymphatic: no cervical lymphadenopathy Results & Data ([facility]) Vital Signs (Past 12 Hours) Vital Signs Temp Pulse Pulse Resp BP BP Pulse Ox 09/01/20 17:30 78 16 166/80 H 96 09/01/20 17:00 78 23 168/85 H 95 09/01/20 16:30 77 20 159/84 H 98 09/01/20 16:00 82 20 164/80 H 97 09/01/20 15:31 79 21 162/78 H 97 09/01/20 15:30 77 23 97 09/01/20 15:00 83 19 152/69 H 96 09/01/20 14:40 82 18 95 09/01/20 14:35 80 80 20 163/71 H 163/71 H 96 09/01/20 13:29 37.1 C 99 H 18 173/103 H 97 Laboratory Results 09/01/20 09/01/20 09/01/20 Range/Units 14:17 14:17 14:17 WBC (4.8-10.8) K/uL RBC (4.7-6.1) M/uL Hgb (14.0-18.0) g/dL Hct (42-52) % MCV (80-100) fL MCH (25-34) pg MCHC (32-36) g/dL RDW Std Deviation (36.4-46.3) fL RDW Coeff of Jordyn (11.5-14.5) % Plt Count (130-400) K/uL MPV (7.4-10.4) fL Immature Gran % (Auto) % Neut % (Auto) % Lymph % (Auto) % Baldwin % (Auto) % Eos % (Auto) % Baso % (Auto) % Neut # (Auto) (1.4-6.5) K/uL Lymph # (Auto) (1.2-3.4) K/uL Baldwin # (Auto) (0.11-0.59) K/uL Eos # (Auto) (0-0.5) K/uL Baso # (Auto) (0-0.2) K/uL Immature Gran # (Auto) (0.00-0.02) K/uL ESR (0-14) mm/hr Sodium 136 (136-145) mmol/L Potassium 3.8 (3.5-5.1) mmol/L Chloride 104 (98-107) mmol/L Carbon Dioxide 26 (21-32) mmol/L Anion Gap 6.0 (3-11) BUN 10 (7-18) mg/dl Creatinine 0.67 (0.6-1.4) mg/dl Est Cr Clr Drug Dosing 154.7 ml/min Est GFR ( Amer) 128.9 Est GFR (Non-Af Amer) 111.3 BUN/Creatinine Ratio 14.3 (10-20) Glucose 281 H (70-99) mg/dl Lactate 1.0 (0.4-2.0) mmol/L Calcium 9.2 (8.5-10.1) mg/dl Total Bilirubin 0.7 (0.2-1) mg/dl AST 22 (15-37) U/L ALT 28 (12-78) U/L Alkaline Phosphatase 74 (45-117) U/L C-Reactive Protein 11.00 H (0-0.29) mg/dl Total Protein 7.3 (6.4-8.2) gm/dl Albumin 2.7 L (3.4-5.0) gm/dl Globulin 4.6 H (2.5-4.0) gm/dl Albumin/Globulin Ratio 0.6 L (0.9-2) Procalcitonin 0.12 (0-0.5) ng/ml 09/01/20 09/01/20 Range/Units 14:17 14:17 WBC 6.92 (4.8-10.8) K/uL RBC 5.03 (4.7-6.1) M/uL Hgb 15.4 (14.0-18.0) g/dL Hct 43.8 (42-52) % MCV 87.1 (80-100) fL MCH 30.6 (25-34) pg MCHC 35.2 (32-36) g/dL RDW Std Deviation 41.4 (36.4-46.3) fL RDW Coeff of Jordyn 12.9 (11.5-14.5) % Plt Count 231 (130-400) K/uL MPV 9.1 (7.4-10.4) fL Immature Gran % (Auto) 1.4 % Neut % (Auto) 66.3 % Lymph % (Auto) 18.9 % Baldwin % (Auto) 10.3 % Eos % (Auto) 2.7 % Baso % (Auto) 0.4 % Neut # (Auto) 4.58 (1.4-6.5) K/uL Lymph # (Auto) 1.31 (1.2-3.4) K/uL Baldwin # (Auto) 0.71 H (0.11-0.59) K/uL Eos # (Auto) 0.19 (0-0.5) K/uL Baso # (Auto) 0.03 (0-0.2) K/uL Immature Gran # (Auto) 0.10 H (0.00-0.02) K/uL ESR 55 H (0-14) mm/hr Sodium (136-145) mmol/L Potassium (3.5-5.1) mmol/L Chloride (98-107) mmol/L Carbon Dioxide (21-32) mmol/L Anion Gap (3-11) BUN (7-18) mg/dl Creatinine (0.6-1.4) mg/dl Est Cr Clr Drug Dosing ml/min Est GFR ( Amer) Est GFR (Non-Af Amer) BUN/Creatinine Ratio (10-20) Glucose (70-99) mg/dl Lactate (0.4-2.0) mmol/L Calcium (8.5-10.1) mg/dl Total Bilirubin (0.2-1) mg/dl AST (15-37) U/L ALT (12-78) U/L Alkaline Phosphatase (45-117) U/L C-Reactive Protein (0-0.29) mg/dl Total Protein (6.4-8.2) gm/dl Albumin (3.4-5.0) gm/dl Globulin (2.5-4.0) gm/dl Albumin/Globulin Ratio (0.9-2) Procalcitonin (0-0.5) ng/ml Diagnostic Findings CT pelvis w/IV con only CLINICAL HISTORY: R buttock abscess, erythema extending to perineum COMPARISON STUDY: No previous studies for comparison. TECHNIQUE: Axial images of the pelvis were obtained following intravenous injection of 94 cc of Optiray 320 IV. Sagittal and coronal reconstructions were viewed.Automated exposure control was utilized for the study. A dose lowering technique was utilized adhering to the principles of ALARA. FINDINGS: The appendix is surgically absent. Postoperative findings from umbilical hernia repair are noted. Bladder is distended. Caliber and wall thickness of the visualized small and large bowel are normal. There is a small fat-containing left inguinal hernia. Sacroiliac joints and symphysis pubis are intact. No soft tissue gas is present. Note is made of a 6.3 x 3.2 cm subcutaneous focus of inflammation within the inferior right buttock. There is associated skin thickening. There is no fluid collection to suggest an abscess. No perirectal or perianal abscess is noted. No perirectal or perianal fistulas identified. No additional sites of inflammation are identified within the pelvis. There are no suspicious osseous lesions. IMPRESSION: 6.3 x 3.2 cm subcutaneous focus of inflammation within the inferior right buttock with associated skin thickening. These findings are consistent with cellulitis. No fluid collection to suggest abscess.
[2020-09-01] MEDS ORDERED: DEXTROSE 50% 50 ML SYRINGE IV PRN (20:36)
[2020-09-01] MEDS ORDERED: POLYETHYLENE (MIRALAX) 17 GM PACK PO PRN (20:36)
[2020-09-01] MEDS ORDERED: CARBOHYDRATES FOR HYPOGLYCEMIA PO PRN (20:36)
[2020-09-01] MEDS ORDERED: ACETAMINOPHEN 325 MG TAB PO PRN (20:36)
[2020-09-01] MEDS ORDERED: GLUCOSE 10 TABS/TUBE PO PRN (20:36)
[2020-09-01] MEDS ORDERED: ONDANSETRON INJ 2 MG/ML 2 ML VIAL IV PRN (20:36)
[2020-09-01] MEDS ORDERED: ALUMINUM/MAGNESIUM SUSP 30 ML UDC PO PRN (20:36)
[2020-09-01] MEDS ORDERED: GLUCAGON FOR INJ 1 MG VIAL SQ PRN (20:36)
[2020-09-01] MEDS ORDERED: GLUCOSE 40% GEL 15 GM TUBE PO PRN (20:36)
[2020-09-01] MEDS ORDERED: PHARMACY GLYCEMIC MGMT CONSULT PRN (20:53)
[2020-09-01] MEDS ORDERED: INSULIN GLARGINE SOLOSTAR 100 UNITS/ML 3 ML PEN SC ONE ×2 (21:00)
[2020-09-01] MEDS: INSULIN ASPART 100 UNITS/ML 3 ML PEN SC SCH (21:15)
[2020-09-01] MEDS: PIPERACILLIN/TAZOBACTAM 3.375 GM in DEXTROSE 5% 100 ML IV SCH (22:21)
[2020-09-02] MEDS: PIPERACILLIN/TAZOBACTAM 3.375 GM in DEXTROSE 5% 100 ML IV SCH (06:06)
[2020-09-02 06:15] LABS: Basophils # (auto) 0.03 K/uL (0-0.2); Basophils % (auto) 0.6 %; Eosinophils # (auto) 0.26 K/uL (0-0.5); Hematocrit (blood only) 40.8 % (42-52); Hemoglobin 14.3 g/dL (14.0-18.0); Immature Granulocytes # (auto) 0.13 K/uL (0.00-0.02); Immature Granulocytes % (auto) 2.5 %; Lymphocytes # (auto) 1.26 K/uL (1.2-3.4); Lymphocytes % (auto) 24.3 %; Mean Corpuscular Hemoglobin 30.6 pg (25-34); Mean Corpuscular Volume 87.2 fL (80-100); Mean Platelet Volume 8.9 fL (7.4-10.4); Monocytes # (auto) 0.65 K/uL (0.11-0.59); Monocytes % (auto) 12.5 %; Neutrophils # (auto) 2.86 K/uL (1.4-6.5); Neutrophils % (auto) 55.1 %; Platelet Count 200 K/uL (130-400); RDW Standard Deviation 41.5 fL (36.4-46.3); Red Blood Count 4.68 M/uL (4.7-6.1); White Blood Count 5.19 K/uL (4.8-10.8)
[2020-09-02 06:38] LABS: BUN Creatinine Ratio 14.4 (10-20); Calcium 8.3 mg/dl (8.5-10.1); Creatinine Clr Calc Pharmacy 210.5 ml/min; Est GFR (African American) 138.8; Est GFR (Non-African American) 119.8; Magnesium 1.7 mg/dl (1.8-2.4); Phosphorus 3.5 mg/dl (2.5-4.9); Potassium 3.4 mmol/L (3.5-5.1)
[2020-09-02] MEDS: ATORVASTATIN 40 MG TAB PO SCH (08:38)
[2020-09-02] MEDS: lisinopriL 10 MG TAB PO SCH (08:38)
[2020-09-02] MEDS: INSULIN GLARGINE SOLOSTAR 100 UNITS/ML 3 ML PEN SC SCH ×2 (08:39→20:43)
[2020-09-02] MEDS: INSULIN ASPART 100 UNITS/ML 3 ML PEN SC SCH ×4 (08:46→20:45)
[2020-09-02] MEDS: MAGNESIUM SULFATE / D5W 1 GM/100 ML BAG IV SCH ×2 (09:21→11:23)
[2020-09-02] MEDS ORDERED: POTASSIUM CHLORIDE 20 MEQ TABCR PO ONE (09:30)
--- NOTE | 2020-09-02 10:05 | Surgery Progress Note ---
Date of Service September 02, 2020 Assessment & Plan (1) Cellulitis of right buttock: Overall slowly improving. No drainable fluid. Continue IV antibiotics and wound care. No new recommendations. Present on Admission?: Yes Admission and Anticipated Discharge Date Admission Date: September 01, 2020 Subjective Feels slightly better. Having some seeping drainage from gluteal area. No other complaints. Review of Systems Review of Systems: All systems reviewed & are unremarkable except as noted in HPI & below Physical Exam Skin: right gluteal fold near 8 cm area of erythema, induration with eschar in midportion (about 3 cm), no drainable fluid collection. Results & Data ([facility]) Vital Signs (Past 12 Hours) Vital Signs Temp Pulse Resp BP Pulse Ox 09/02/20 07:30 36.8 C 73 16 134/78 97 09/01/20 23:06 37.2 C 83 16 150/78 H 97 Laboratory Results Abnormal lab results 09/01/20 09/01/20 09/01/20 Range/Units 14:17 14:17 14:17 RBC (4.7-6.1) M/uL Hct (42-52) % Hardy # (Auto) 0.71 H (0.11-0.59) K/uL Immature Gran # (Auto) 0.10 H (0.00-0.02) K/uL ESR 55 H (0-14) mm/hr Potassium (3.5-5.1) mmol/L Creatinine (0.6-1.4) mg/dl Glucose 281 H (70-99) mg/dl POC Glucose (70-99) mg/dl Calcium (8.5-10.1) mg/dl Magnesium (1.8-2.4) mg/dl C-Reactive Protein 11.00 H (0-0.29) mg/dl Albumin 2.7 L (3.4-5.0) gm/dl Globulin 4.6 H (2.5-4.0) gm/dl Albumin/Globulin Ratio 0.6 L (0.9-2) 09/01/20 09/02/20 09/02/20 Range/Units 20:36 05:56 05:56 RBC 4.68 L (4.7-6.1) M/uL Hct 40.8 L (42-52) % Hardy # (Auto) 0.65 H (0.11-0.59) K/uL Immature Gran # (Auto) 0.13 H (0.00-0.02) K/uL ESR (0-14) mm/hr Potassium 3.4 L (3.5-5.1) mmol/L Creatinine 0.56 L (0.6-1.4) mg/dl Glucose 237 H (70-99) mg/dl POC Glucose 196 H (70-99) mg/dl Calcium 8.3 L (8.5-10.1) mg/dl Magnesium 1.7 L (1.8-2.4) mg/dl C-Reactive Protein (0-0.29) mg/dl Albumin (3.4-5.0) gm/dl Globulin (2.5-4.0) gm/dl Albumin/Globulin Ratio (0.9-2) 09/02/20 09/02/20 Range/Units 08:29 08:31 RBC (4.7-6.1) M/uL Hct (42-52) % Hardy # (Auto) (0.11-0.59) K/uL Immature Gran # (Auto) (0.00-0.02) K/uL ESR (0-14) mm/hr Potassium (3.5-5.1) mmol/L Creatinine (0.6-1.4) mg/dl Glucose (70-99) mg/dl POC Glucose 302 H* 245 H (70-99) mg/dl Calcium (8.5-10.1) mg/dl Magnesium (1.8-2.4) mg/dl C-Reactive Protein (0-0.29) mg/dl Albumin (3.4-5.0) gm/dl Globulin (2.5-4.0) gm/dl Albumin/Globulin Ratio (0.9-2)
--- NOTE | 2020-09-02 10:28 | Pharmacy Report ---
Glycemic Control Consultation - Date of Service September 02, 2020 - Scope Scope: Glycemic Pharmacist consulted for glycemic control and to write orders per [facility] inpatient glycemic control protocol. - Objective Weight: 128.9 kg Accuchecks BSG (last 24hrs): 09/01/20 09/01/20 09/02/20 14:17 20:36 05:56 Glucose 281 H 237 H POC Glucose 196 H 09/02/20 09/02/20 08:29 08:31 Glucose POC Glucose 302 H* 245 H Laboratory Data (last 24hrs): 09/01/20 09/02/20 14:17 05:56 Potassium 3.8 3.4 L Carbon Dioxide 26 26 Anion Gap 6.0 5.0 Creatinine 0.67 0.56 L Est Cr Clr Drug Dosing 154.7 210.5 - Recent Pertinent Medications Outpatient Anti-diabetic Regimen: * Jardiance 10 mg daily * Amaryl 4 mg daily * metformin 1 gm BIDM * A1c = 9.2 % 02/23/19 The patient is currently receiving: * Basal insulin: Lantus 25 units x 1 then 10-26 units based upon bl ood sugar * Correctional Insulin: Novolog Correction per scale ACHS Goal Range: Low 110 mg/dL - High 140 mg/dL Correction Factor: 25 mg/dL/unit * Prandial insulin: Per carb ratio of 1 unit per 8 grams CHO consumed * Oral Agents: Risk Factors for Insulin Resistance: * Infection: cellulitis on daptomycin and Zosyn * Diet: T2DM - Assessment & Plan Assessment & Plan: ASSESSMENT: * Mr Liao is a 50 y/o M with a PMH of T2DM on three oral medications (current HbA1C is pending). Patient's admitting blood sugar was 196 mg/dL. He received 25 units of Lantus. * Fasting BSG was 245 mg/dL and he received Lantus 26 units per scale. Novolog weight-based stress of 1-2 was ordered for breakfast. Adjusted scale based upon updated weight. Tightened to weight-based stress of 2 Novolog as expect patient may require close to 100 units/day at the beginning due to insulin resistance and infection. * Pt is maintained on oral antidiabetic agents as an outpatient * Oral agents are not recommended for inpatient use d/t drug interactions, changing PO intake, and difficulty titrating for acute hyper/hypoglycemia. ADA recommends re-initiating outpatient oral agents 1-2 days prior to discharge if/when appropriate if they were held on admission. PLAN FOR INPATIENT GLYCEMIC CONTROL: * Holding outpatient oral diabetes medications * Basal insulin * Lantus 12-30 units SQ BID (Lantus 12 units if BSG < 120 mg/dL; 22 units if BSG 120-180 mg/dL; 30 units if BSG greater than 180 mg/dL) * Bolus insulin * NovoLog per scale ACHS or Q6hrs while NPO * Goal Range: Low 110 mg/dL - High 140 mg/dL * Correction Factor: 20 mg/dL/unit * Nutritional / Prandial insulin per carb ratio of 1 unit per 6 grams CHO consumed * Please note that the plan above was derived based on current level of insulin resistance and hospital stress. These recommendations are appropriate for inpatient admission only. Plan of care upon discharge will need to be reassessed to avoid potential outpatient hypo/hyperglycemia. Thank you.
--- NOTE | 2020-09-02 13:03 | Hospitalist Progress Note ---
Date of Service September 02, 2020 Assessment & Plan (1) Cellulitis of right buttock: Torito Liao is a 50y/o M with PMH significant for T2DM, HTN, and HLD; who presented to the emergency department for concern for a wound on his behind that had been there over the previous four days. Cellulitis: - granulation tissue over right gluteal fold - continue Daptomycin and Zosyn - Gen Surg consulted: no indication for surgical treatment at this time - wound gram stain demonstrating staph species, culture pending - blood cultures pending T2DM: - continue to hold home oral regimen - BSG ACHS - sliding scale insulin ordered - A1c pending HTN: - continue lisinopril daily HLD: - continue Atorvastatin 40mg daily Hypomagnesemia: - Magnesium 1.7 this AM - repleted with 2gm Mag sulfate - recheck in AM Hypokalemia: - K 3.4 this AM - repleted with 40meq KCl PO - recheck in AM (2) Type 2 diabetes mellitus: (3) Hyperlipidemia: (4) Hypertension: Admission and Anticipated Discharge Date Admission Date: September 01, 2020 Supervising Physician Co-Signing Physician Notes Patient seen and examined with PGY-2 Dr. Briscoe. Agree with history, exam findings, assessment and plan of care as outlined. In brief, Mr. Liao is a 50 year old male with history of diabetes (not at goal), HTN, HLD admitted with draining abscess with overlying cellulitis on the right buttock. + chills, but no fevers. Today, continues to have pain in the area of the infection. Still draining. Some chills, but no fever. VS, labs, imaging and nursing notes reviewed. On exam, he is lying on his side, non-toxic appearing. Right buttock with central open area with surrounding induration as well as erythema. Area is tender to the touch. Draining bloody fluid. 1. Abscess, spontaneously draining, with overlying cellulitis. No leukocytosis. Continue with dapto and zosyn. Culture growing out staph, still prelim. Wound care. Appreciate general surgerys recommendations. 2. DM2. A1C was 9.2 over 1 year ago. Still waiting for A1C that was ordered this morning. Suspect that he is not at goal with a random glucose yesterday in the 300s and today in the high 200s. Holding home metformin and glimepiride. Start sliding scale. Noted that he does have some GI issues with metformincould consider switching to metformin extended release after discharge. Discussed importance of adequate glucose control, especially in the setting of infections. Might benefit from a GLP-1 receptor agonist as an outpatient. 3. HLD. Continue home atorvastatin. 4. HTN. Continue home lisinopril 10mg. May need to up titrate if BPs are not well controlled. Dispo: pending clinical improvement. Will need close follow up with his PCP Subjective Patient feels like his wound feels slightly better, not nearly as tender as it was previously and does not think that there has been as much drainage since being started on the antibiotics. Does endorse sweats, but denies fevers, ch ills, nausea, vomiting, abdominal pain, or changes to bowel movements. Review of Systems Review of Systems: All systems reviewed & are unremarkable except as noted in Subjective Physical Exam Constitutional: WD/WN, vitals as above Eyes: PERRL, conjunctivae normal, anicteric sclerae Respiratory: normal respiratory effort, lungs clear to auscultation Cardiovascular: Rate/Rhythm: regular rate and regular rhythm Heart Sounds: no gallop, no murmur and no cardiac rub Vessels: normal peripheral pulses; no JVD Gastrointestinal (Abdomen): normal bowel sounds, soft, nontender, no hepatosplenomegaly Skin: + ulcer (superficial) and + induration (right buttock with erythema, with granulation tissue, no purulent drainage ) Psychiatric: Orientation: alert and oriented x 3 Results & Data Results & Data ([facility]) Vital Signs (Past 12 Hours) Vital Signs Temp Pulse Resp BP Pulse Ox 09/02/20 07:30 36.8 C 73 16 134/78 97 Laboratory Results 09/02/20 09/02/20 09/02/20 Range/Units 12:01 08:31 08:29 WBC (4.8-10.8) K/uL RBC (4.7-6.1) M/uL Hgb (14.0-18.0) g/dL Hct (42-52) % MCV (80-100) fL MCH (25-34) pg MCHC (32-36) g/dL RDW Std Deviation (36.4-46.3) fL RDW Coeff of Jordyn (11.5-14.5) % Plt Count (130-400) K/uL MPV (7.4-10.4) fL Immature Gran % (Auto) % Neut % (Auto) % Lymph % (Auto) % [place] % (Auto) % Eos % (Auto) % Baso % (Auto) % Neut # (Auto) (1.4-6.5) K/uL Lymph # (Auto) (1.2-3.4) K/uL [place] # (Auto) (0.11-0.59) K/uL Eos # (Auto) (0-0.5) K/uL Baso # (Auto) (0-0.2) K/uL Immature Gran # (Auto) (0.00-0.02) K/uL ESR (0-14) mm/hr Sodium (136-145) mmol/L Potassium (3.5-5.1) mmol/L Chloride (98-107) mmol/L Carbon Dioxide (21-32) mmol/L Anion Gap (3-11) BUN (7-18) mg/dl Creatinine (0.6-1.4) mg/dl Est Cr Clr Drug Dosing ml/min Est GFR ( Amer) Est GFR (Non-Af Amer) BUN/Creatinine Ratio (10-20) Glucose (70-99) mg/dl POC Glucose 282 H 245 H 302 H* (70-99) mg/dl Estimat Average Glucose Hemoglobin A1c Lactate (0.4-2.0) mmol/L Calcium (8.5-10.1) mg/dl Phosphorus (2.5-4.9) mg/dl Magnesium (1.8-2.4) mg/dl Total Bilirubin (0.2-1) mg/dl AST (15-37) U/L ALT (12-78) U/L Alkaline Phosphatase (45-117) U/L C-Reactive Protein (0-0.29) mg/dl Total Protein (6.4-8.2) gm/dl Albumin (3.4-5.0) gm/dl Globulin (2.5-4.0) gm/dl Albumin/Globulin Ratio (0.9-2) Procalcitonin (0-0.5) ng/ml 09/02/20 09/02/20 09/02/20 Range/Units 05:56 05:56 05:56 WBC 5.19 (4.8-10.8) K/uL RBC 4.68 L (4.7-6.1) M/uL Hgb 14.3 (14.0-18.0) g/dL Hct 40.8 L (42-52) % MCV 87.2 (80-100) fL MCH 30.6 (25-34) pg MCHC 35.0 (32-36) g/dL RDW Std Deviation 41.5 (36.4-46.3) fL RDW Coeff of Jordyn 13.0 (11.5-14.5) % Plt Count 200 (130-400) K/uL MPV 8.9 (7.4-10.4) fL Immature Gran % (Auto) 2.5 % Neut % (Auto) 55.1 % Lymph % (Auto) 24.3 % [place] % (Auto) 12.5 % Eos % (Auto) 5.0 % Baso % (Auto) 0.6 % Neut # (Auto) 2.86 (1.4-6.5) K/uL Lymph # (Auto) 1.26 (1.2-3.4) K/uL [place] # (Auto) 0.65 H (0.11-0.59) K/uL Eos # (Auto) 0.26 (0-0.5) K/uL Baso # (Auto) 0.03 (0-0.2) K/uL Immature Gran # (Auto) 0.13 H (0.00-0.02) K/uL ESR (0-14) mm/hr Sodium 138 (136-145) mmol/L Potassium 3.4 L (3.5-5.1) mmol/L Chloride 107 (98-107) mmol/L Carbon Dioxide 26 (21-32) mmol/L Anion Gap 5.0 (3-11) BUN 8 (7-18) mg/dl Creatinine 0.56 L (0.6-1.4) mg/dl Est Cr Clr Drug Dosing 210.5 ml/min Est GFR ( Amer) 138.8 Est GFR (Non-Af Amer) 119.8 BUN/Creatinine Ratio 14.4 (10-20) Glucose 237 H (70-99) mg/dl POC Glucose (70-99) mg/dl Estimat Average Glucose Pending Hemoglobin A1c Pending Lactate (0.4-2.0) mmol/L Calcium 8.3 L (8.5-10.1) mg/dl Phosphorus 3.5 (2.5-4.9) mg/dl Magnesium 1.7 L (1.8-2.4) mg/dl Total Bilirubin (0.2-1) mg/dl AST (15-37) U/L ALT (12-78) U/L Alkaline Phosphatase (45-117) U/L C-Reactive Protein (0-0.29) mg/dl Total Protein (6.4-8.2) gm/dl Albumin (3.4-5.0) gm/dl Globulin (2.5-4.0) gm/dl Albumin/Globulin Ratio (0.9-2) Procalcitonin (0-0.5) ng/ml 09/01/20 09/01/20 09/01/20 Range/Units 20:36 14:17 14:17 WBC (4.8-10.8) K/uL RBC (4.7-6.1) M/uL Hgb (14.0-18.0) g/dL Hct (42-52) % MCV (80-100) fL MCH (25-34) pg MCHC (32-36) g/dL RDW Std Deviation (36.4-46.3) fL RDW Coeff of Jordyn (11.5-14.5) % Plt Count (130-400) K/uL MPV (7.4-10.4) fL Immature Gran % (Auto) % Neut % (Auto) % Lymph % (Auto) % [place] % (Auto) % Eos % (Auto) % Baso % (Auto) % Neut # (Auto) (1.4-6.5) K/uL Lymph # (Auto) (1.2-3.4) K/uL [place] # (Auto) (0.11-0.59) K/uL Eos # (Auto) (0-0.5) K/uL Baso # (Auto) (0-0.2) K/uL Immature Gran # (Auto) (0.00-0.02) K/uL ESR (0-14) mm/hr Sodium (136-145) mmol/L Potassium (3.5-5.1) mmol/L Chloride (98-107) mmol/L Carbon Dioxide (21-32) mmol/L Anion Gap (3-11) BUN (7-18) mg/dl Creatinine (0.6-1.4) mg/dl Est Cr Clr Drug Dosing ml/min Est GFR ( Amer) Est GFR (Non-Af Amer) BUN/Creatinine Ratio (10-20) Glucose (70-99) mg/dl POC Glucose 196 H (70-99) mg/dl Estimat Average Glucose Hemoglobin A1c Lactate 1.0 (0.4-2.0) mmol/L Calcium (8.5-10.1) mg/dl Phosphorus (2.5-4.9) mg/dl Magnesium (1.8-2.4) mg/dl Total Bilirubin (0.2-1) mg/dl AST (15-37) U/L ALT (12-78) U/L Alkaline Phosphatase (45-117) U/L C-Reactive Protein (0-0.29) mg/dl Total Protein (6.4-8.2) gm/dl Albumin (3.4-5.0) gm/dl Globulin (2.5-4.0) gm/dl Albumin/Globulin Ratio (0.9-2) Procalcitonin 0.12 (0-0.5) ng/ml 09/01/20 09/01/20 09/01/20 Range/Units 14:17 14:17 14:17 WBC 6.92 (4.8-10.8) K/uL RBC 5.03 (4.7-6.1) M/uL Hgb 15.4 (14.0-18.0) g/dL Hct 43.8 (42-52) % MCV 87.1 (80-100) fL MCH 30.6 (25-34) pg MCHC 35.2 (32-36) g/dL RDW Std Deviation 41.4 (36.4-46.3) fL RDW Coeff of Jordyn 12.9 (11.5-14.5) % Plt Count 231 (130-400) K/uL MPV 9.1 (7.4-10.4) fL Immature Gran % (Auto) 1.4 % Neut % (Auto) 66.3 % Lymph % (Auto) 18.9 % [place] % (Auto) 10.3 % Eos % (Auto) 2.7 % Baso % (Auto) 0.4 % Neut # (Auto) 4.58 (1.4-6.5) K/uL Lymph # (Auto) 1.31 (1.2-3.4) K/uL [place] # (Auto) 0.71 H (0.11-0.59) K/uL Eos # (Auto) 0.19 (0-0.5) K/uL Baso # (Auto) 0.03 (0-0.2) K/uL Immature Gran # (Auto) 0.10 H (0.00-0.02) K/uL ESR 55 H (0-14) mm/hr Sodium 136 (136-145) mmol/L Potassium 3.8 (3.5-5.1) mmol/L Chloride 104 (98-107) mmol/L Carbon Dioxide 26 (21-32) mmol/L Anion Gap 6.0 (3-11) BUN 10 (7-18) mg/dl Creatinine 0.67 (0.6-1.4) mg/dl Est Cr Clr Drug Dosing 154.7 ml/min Est GFR ( Amer) 128.9 Est GFR (Non-Af Amer) 111.3 BUN/Creatinine Ratio 14.3 (10-20) Glucose 281 H (70-99) mg/dl POC Glucose (70-99) mg/dl Estimat Average Glucose Hemoglobin A1c Lactate (0.4-2.0) mmol/L Calcium 9.2 (8.5-10.1) mg/dl Phosphorus (2.5-4.9) mg/dl Magnesium (1.8-2.4) mg/dl Total Bilirubin 0.7 (0.2-1) mg/dl AST 22 (15-37) U/L ALT 28 (12-78) U/L Alkaline Phosphatase 74 (45-117) U/L C-Reactive Protein 11.00 H (0-0.29) mg/dl Total Protein 7.3 (6.4-8.2) gm/dl Albumin 2.7 L (3.4-5.0) gm/dl Globulin 4.6 H (2.5-4.0) gm/dl Albumin/Globulin Ratio 0.6 L (0.9-2) Procalcitonin (0-0.5) ng/ml Medications Administered Current Inpatient Medications Acetaminophen (Acetaminophen 325 Mg Tab) 650 mg PO Q4H PRN PRN Reason: pain/fever Stop: 10/01/20 20:35 Last Admin: 09/01/20 23:54 Dose: 650 mg Documented by: Al Hydrox/Mg Hydrox/Simethicone (Aluminum/Magnesium Susp 30 Ml Udc) 30 ml PO Q6H PRN PRN Reason: Dyspepsia Stop: 10/01/20 20:35 Atorvastatin Calcium (Atorvastatin 40 Mg Tab) 40 mg PO DAILY NICK Stop: 10/02/20 08:59 Last Admin: 09/02/20 08:38 Dose: 40 mg Documented by: Dextrose (Dextrose 50% 50 Ml Syringe) 25 - 50 ml IV UD PRN; Protocol PRN Reason: Hypoglycemia Protocol Stop: 10/01/20 20:35 Glucagon (Glucagon For Inj 1 Mg Vial) 1 mg SQ UD PRN; Protocol PRN Reason: Hypoglycemia Protocol Stop: 10/01/20 20:35 Glucose (Glucose 10 Tabs/Tube) 4 - 8 tabs PO UD PRN; Protocol PRN Reason: Hypoglycemia Protocol Stop: 10/01/20 20:35 Glucose (Glucose 40% Gel 15 Gm Tube) 15 - 30 gm PO UD PRN; Protocol PRN Reason: Hypoglycemia Protocol Stop: 10/01/20 20:35 Magnesium Sulfate/Dextrose (Magnesium Sulfate / D5w) 1 gm in 100 mls @ 50 mls/hr IV Q2H NICK Stop: 09/02/20 13:29 Last Infusion: 09/02/20 13:11 Dose: Infused Documented by: Piperacillin Sod/Tazobactam (Sod 4.5 gm/ Dextrose) 120 mls @ 30 mls/hr IV Q8 NICK; Protocol Stop: 09/09/20 13:59 Last Admin: 09/02/20 13:14 Dose: 30 mls/hr Documented by: Daptomycin 400 mg/ Syringe 8 mls @ 4 mls/min IV DAILY@1700 NICK; Protocol Stop: 09/09/20 16:59 Insulin Aspart (Insulin Aspart 100 Units/Ml 3 Ml Pen) 0 units SC ACHS NICK Stop: 10/01/20 20:59 Last Admin: 09/02/20 12:29 Dose: 12 units Documented by: Insulin Glargine (Insulin Glargine Solostar 100 Units/Ml 3 Ml Pen) 0 units SC BID NICK; Protocol Stop: 10/02/20 08:59 Last Admin: 09/02/20 08:39 Dose: 26 units Documented by: Lisinopril (Lisinopril 10 Mg Tab) 10 mg PO DAILY NICK Stop: 10/02/20 08:59 Last Admin: 09/02/20 08:38 Dose: 10 mg Documented by: Miscellaneous (Carbohydrates For Hypoglycemia ) 15 - 30 gm PO UD PRN PRN Reason: Hypoglycemia Protocol Stop: 10/01/20 20:35 Miscellaneous Information (Piperacill/Tazobac Consult Active) 1 ea N/A UD PRN PRN Reason: Consult Stop: 10/01/20 16:17 Miscellaneous Information (Daptomycin Consult Active) 1 ea N/A UD PRN PRN Reason: Consult Stop: 10/01/20 16:17 Miscellaneous Information (Pharmacy Glycemic Mgmt Consult) 1 ea N/A UD PRN; Protocol PRN Reason: Consult Stop: 10/01/20 20:52 Ondansetron HCl (Ondansetron Inj 2 Mg/Ml 2 Ml Vial) 4 mg IV Q6H PRN PRN Reason: Nausea Stop: 10/01/20 20:35 Polyethylene Glycol (Polyethylene (Miralax) 17 Gm Pack) 17 gm PO DAILY PRN PRN Reason: Constipation Stop: 10/01/20 20:35 Resident Activity Tracking Resident Involvement: Resident Care Provided Care Provided: Adult Hospital Medicine
[2020-09-02] MEDS: PIPERACILLIN/TAZOBACTAM 4.5 GM in DEXTROSE 5% 100 ML IV SCH ×2 (13:14→22:09)
[2020-09-02] MEDS ORDERED: DAPTOmycin 400 MG in SYRINGE 0 ML IV SCH (17:00)
[2020-09-02] MEDS ORDERED: DAPTOmycin 275 MG in SYRINGE 0 ML IV SCH (17:00)
[2020-09-03] MEDS ORDERED: OXYCODONE HCL IR 5 MG TAB (IMMEDIATE RELEASE) PO STA (01:46)
[2020-09-03] MEDS: PIPERACILLIN/TAZOBACTAM 4.5 GM in DEXTROSE 5% 100 ML IV SCH (06:05)
[2020-09-03 06:06] LABS: Estimated Average Glucose 341 mg/dl; Hemoglobin A1C 13.5 % (4.5-5.6)
[2020-09-03 07:22] LABS: Basophils # (auto) 0.02 K/uL (0-0.2); Basophils % (auto) 0.4 %; Eosinophils # (auto) 0.21 K/uL (0-0.5); Eosinophils % (auto) 4.1 %; Hemoglobin 14.7 g/dL (14.0-18.0); Immature Granulocytes # (auto) 0.15 K/uL (0.00-0.02); Immature Granulocytes % (auto) 2.9 %; Lymphocytes # (auto) 2.01 K/uL (1.2-3.4); Lymphocytes % (auto) 39.5 %; Mean Corpuscular Hemoglobin 30.2 pg (25-34); Mean Corpuscular Volume 86.4 fL (80-100); Mean Platelet Volume 8.9 fL (7.4-10.4); Monocytes # (auto) 0.56 K/uL (0.11-0.59); Neutrophils # (auto) 2.14 K/uL (1.4-6.5); Neutrophils % (auto) 42.1 %; Platelet Count 195 K/uL (130-400); RDW Coefficient of Variation 12.9 % (11.5-14.5); RDW Standard Deviation 41.2 fL (36.4-46.3); Red Blood Count 4.86 M/uL (4.7-6.1); White Blood Count 5.09 K/uL (4.8-10.8)
[2020-09-03 08:09] LABS: BUN Creatinine Ratio 11.4 (10-20); Calcium 8.9 mg/dl (8.5-10.1); Creatinine Clr Calc Pharmacy 183.9 ml/min; Est GFR (African American) 131.4; Est GFR (Non-African American) 113.4; Potassium 3.3 mmol/L (3.5-5.1)
[2020-09-03] MEDS: ATORVASTATIN 40 MG TAB PO SCH (08:39)
[2020-09-03] MEDS: lisinopriL 10 MG TAB PO SCH (08:39)
[2020-09-03] MEDS: INSULIN GLARGINE SOLOSTAR 100 UNITS/ML 3 ML PEN SC SCH ×2 (08:43→20:44)
[2020-09-03] MEDS: INSULIN ASPART 100 UNITS/ML 3 ML PEN SC SCH ×4 (08:43→20:43)
--- NOTE | 2020-09-03 08:57 | Pharmacy Report ---
Pharmacy Glycemic Short Note 2 - Date of Service September 03, 2020 - Glycemic Short BSG Results (Last 24 hours): OUTPATIENT ANTIDIABETIC REGIMEN: * Jardiance 10 mg daily + Glimepiride 4 mg daily + Metformin 1 gm BIDM * A1c = 13.5% (09/02/2020) ASSESSMENT: 09/03: * Torito received a total of 96 units of insulin yesterday * 52 units basal + 44 units bolus * BSGs were [phone] mg/dL - uncontrolled * Fasting BSG this AM was 256 mg/dL - well above goal * Will increase basal insulin by ~15% today * Novolog parameters were tightened to weight-based stress of 3 given significant hyperglycemia at lunchtime 09/02: * Mr Liao is a 50 y/o M with a PMH of T2DM on three oral medications. Patient's admitting blood sugar was 196 mg/dL. He received 25 units of Lantus. * Fasting BSG was 245 mg/dL and he received Lantus 26 units per scale. Novolog weight-based stress of 1-2 was ordered for breakfast. Adjusted scale based upon updated weight. Tightened to weight-based stress of 2 Novolog as expect patient may require close to 100 units/day at the beginning due to insulin resistance and infection. * Pt is maintained on oral antidiabetic agents as an outpatient * Oral agents are not recommended for inpatient use d/t drug interactions, changing PO intake, and difficulty titrating for acute hyper/hypoglycemia. ADA recommends re-initiating outpatient oral agents 1-2 days prior to discharge if/when appropriate if they were held on admission. PLAN FOR INPATIENT GLYCEMIC CONTROL: * Hold outpatient oral diabetes medications * Basal insulin - increased 15% * Lantus 26-30 units SQ BID (per scale - see eMAR for more details) * Bolus insulin - tightened CF/CR * NovoLog per scale ACHS or Q6hrs while NPO * Goal Range: Low 110 mg/dL - High 140 mg/dL * Correction Factor: 10 mg/dL/unit * Nutritional / Prandial insulin per carb ratio of 1 unit per 4 grams CHO consumed PLAN FOR DISCHARGE: * HbA1c from this admission was 13.5%. Patient will require insulin upon discharge. Specific discharge recommendations to be made once BSGs are more controlled.
--- NOTE | 2020-09-03 09:41 | Hospitalist Progress Note ---
Date of Service September 03, 2020 Assessment & Plan (1) Cellulitis of right buttock: 50 yo M PMHx DM2, HTN, HLD admitted for right buttock cellulitis and found to have poor DM2 control with significant elevation of Hgb A1c. Cellulitis: - Granulation tissue over right gluteal fold, improvement in erythema today. - Wound culture grew MSSA. - Transitioned Daptomycin/Zosyn to Augmentin today. - Blood cultures negative to date. - Gen Surg consulted: no indication for surgical treatment at this time. DM2: - Continue to hold home oral regimen. Reports metformin at home, has been on several oral medications outpatient with side effects. - A1c today 13.5. - Today had extensive discussion regarding dietary modification for BSG control, and checking home BSG 2 hours after meals to help him understand which meals are carbohydrate heavy. - Will also plan for insulin regimen on discharge, for follow up by primary care doctor. HTN: - Continue lisinopril daily. HLD: - Continue Atorvastatin 40mg daily. Hypomagnesemia: - Magnesium 1.7 on 09/02, repleted with Mg Sulfate 2grams. Hypokalemia: - K 3.3 this AM, repleted with 40meq KCl PO. - Recheck in AM. Code Status: FULL CODE FEN/GI: DM2 diet DVT ppx: Heparin 5000u q12h Dispo: Med/Surg, for likely discharge tomorrow pending education on insulin home use and pending tolerance of PO Abx (2) Type 2 diabetes mellitus: (3) Hyperlipidemia: (4) Hypertension: Admission and Anticipated Discharge Date Admission Date: September 01, 2020 Supervising Physician Co-Signing Physician Notes I personally examined the patient and verified all muñiz points of history and exam, discussed case, and agree with decision making with Dr Tapia. feeling better overall. discussed sugar management. he eats a lot of simple carbs. vitals noted nad heent nc at mmm breathing unlabored no accessory muscles good effort skin shows R buttock w ulcerated area small amount of yellow drainage surrounding erythema and induration but dull maroon and well within previously drawn margins, moderately tender at worst, minimally tender in many places. buttocks cellulitis present on admission - no abscess fortunately spontaneously draining. sensitive bacteria from culture - change to PO abx. uncontrolled DM2 - discussed pathophys of DM2 and critical role of lifestyle in controlling/improving situation. agree for now insulin needed - transitioning to basal bolus regimen he can hopefully follow through with at home. otherwise as above Subjective Patient without acute events overnight. Reports that overall his buttock area feels better with regard to pain, and during interview he was lying on his back in bed. No subjective fevers or chills, no chest pain or SOB, no nausea or vomiting, diarrhea or constipation. Today discussed his home DM2 medication regimen. Has been on several oral medications in the past with GI side effects, and now currently only on Metformin at home. 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 Likes veggies and lean proteins, however it is much easier for his lifestyle to eat the more carb-heavy foods. Does not check his sugars at home. Review of Systems Review of Systems: All systems reviewed & are unremarkable except as noted in HPI & below Constitutional: no fever, no chills and no malaise Respiratory: no cough and no dyspnea Cardiovascular: no chest pain, no palpitations and no edema Gastrointestinal: no abdominal pain, no constipation and no diarrhea/loose stools Physical Exam Constitutional: WD/WN, vitals as above Eyes: PERRL, conjunctivae normal, anicteric sclerae Respiratory: normal respiratory effort, lungs clear to auscultation Cardiovascular: Rate/Rhythm: regular rate and regular rhythm Heart Sounds: no murmur Vessels: normal peripheral pulses Gastrointestinal (Abdomen): normal bowel sounds, soft, nontender, no hepatosplenomegaly Skin: Superficial dime-sized ulceration over approximately 5cm area of erythema, decreased in size from yesterday (marked with surgical pen). Psychiatric: Orientation: alert and oriented x 3 Results & Data Results & Data ([facility]) Vital Signs (Past 12 Hours) Vital Signs Temp Pulse Resp BP Pulse Ox 09/03/20 06:53 36.7 C 67 19 136/79 96 09/02/20 23:11 37.1 C 71 20 160/78 H 96 Resident Activity Tracking Resident Involvement: Resident Care Provided Care Provided: Adult [facility] Medicine
[2020-09-03] MEDS ORDERED: POTASSIUM CHLORIDE 20 MEQ TABCR PO STA (10:54)
--- NOTE | 2020-09-03 13:49 | Surgery Progress Note ---
Date of Service September 03, 2020 Assessment & Plan (1) Cellulitis of right buttock: Cellulitis of right buttock Less erythema and pain today No fluctuance Ultrasound again demonstrated no collection for drainage Continue IV antibiotics Admission and Anticipated Discharge Date Admission Date: September 03, 2020 Subjective Having less pain today Still with some drainage No nausea or vomiting Physical Exam Physical Exam: Right buttock shows decreased inflammation There is still central desquamation with some drainage but no fluctuance Results & Data ([facility]) Vital Signs (Past 12 Hours) Vital Signs Temp Pulse Resp BP Pulse Ox 09/03/20 06:53 36.7 C 67 19 136/79 96
[2020-09-03] MEDS ORDERED: CEFAZOLIN 2000MG 2,000 MG/15 ML SYR IV SCH (14:00)
[2020-09-03] MEDS: AMOXICILLIN/CLAVULANATE 875 MG TAB PO SCH (16:52)
--- NOTE | 2020-09-03 18:05 | Billing Data ---
Date of Service September 03, 2020 Coding Level of Care Code 63542 Subseq Hosp Care Lvl 3
[2020-09-03] MEDS: HEPARIN SOD 5,000 UNIT/0.5 ML VIAL SQ SCH (20:47)
[2020-09-04 06:53] LABS: Basophils # (auto) 0.01 K/uL (0-0.2); Basophils % (auto) 0.2 %; Eosinophils # (auto) 0.21 K/uL (0-0.5); Eosinophils % (auto) 3.3 %; Hemoglobin 15.5 g/dL (14.0-18.0); Immature Granulocytes # (auto) 0.23 K/uL (0.00-0.02); Immature Granulocytes % (auto) 3.6 %; Lymphocytes # (auto) 2.19 K/uL (1.2-3.4); Lymphocytes % (auto) 34.4 %; Mean Corpuscular Hemoglobin 30.9 pg (25-34); Mean Corpuscular Hgb Conc 35.2 g/dL (32-36); Mean Corpuscular Volume 87.6 fL (80-100); Mean Platelet Volume 8.9 fL (7.4-10.4); Monocytes % (auto) 14.2 %; Neutrophils # (auto) 2.82 K/uL (1.4-6.5); Neutrophils % (auto) 44.3 %; Platelet Count 211 K/uL (130-400); RDW Coefficient of Variation 13.1 % (11.5-14.5); RDW Standard Deviation 41.8 fL (36.4-46.3); Red Blood Count 5.02 M/uL (4.7-6.1); White Blood Count 6.36 K/uL (4.8-10.8)
[2020-09-04 07:22] LABS: BUN Creatinine Ratio 14.3 (10-20); Calcium 8.7 mg/dl (8.5-10.1); Creatinine Clr Calc Pharmacy 189.9 ml/min; Est GFR (African American) 133.1; Est GFR (Non-African American) 114.9; Potassium 3.7 mmol/L (3.5-5.1)
[2020-09-04] MEDS: AMOXICILLIN/CLAVULANATE 875 MG TAB PO SCH (08:23)
[2020-09-04] MEDS: lisinopriL 10 MG TAB PO SCH (08:23)
[2020-09-04] MEDS: ATORVASTATIN 40 MG TAB PO SCH (08:23)
[2020-09-04] MEDS: HEPARIN SOD 5,000 UNIT/0.5 ML VIAL SQ SCH (08:24)
--- NOTE | 2020-09-04 08:26 | Pharmacy Report ---
Pharmacy Glycemic Short Note 2 - Date of Service September 04, 2020 - Glycemic Short BSG Results (Last 24 hours): 09/03/20 09/03/20 09/03/20 12:03 17:03 20:32 Glucose POC Glucose 265 H 193 H 215 H 09/04/20 09/04/20 06:26 08:06 Glucose 207 H POC Glucose 209 H OUTPATIENT ANTIDIABETIC REGIMEN: * Jardiance 10 mg daily + Glimepiride 4 mg daily + Metformin 1 gm BIDM * Patient reports non-compliance with this regimen * A1c = 13.5% (09/02/2020) ASSESSMENT: 09/04: * Patient received a total of 138 units of insulin yesterday * 60 units basal + 78 units bolus * BSGs were uncontrolled yesterday - 256, 265, 193, and 215 mg/dL * Fasting BSG this AM is 209 mg/dL - mildly improved from yesterday and day prior * Will plan to increase basal insulin today and give approximately 2/3 of dose this morning to prepare for once daily basal on discharge * Novolog parameters were tightened to weight-based stress of 3 yesterday given significant hyperglycemia at lunchtime * Will continue this for now 09/02: * Mr Liao is a 50 y/o M with a PMH of T2DM on three oral medications. Patient's admitting blood sugar was 196 mg/dL. He received 25 units of Lantus. * Fasting BSG was 245 mg/dL and he received Lantus 26 units per scale. Novolog weight-based stress of 1-2 was ordered for breakfast. Adjusted scale based upon updated weight. Tightened to weight-based stress of 2 Novolog as expect patient may require close to 100 units/day at the beginning due to insulin resistance and infection. * Pt is maintained on oral antidiabetic agents as an outpatient * Oral agents are not recommended for inpatient use d/t drug interactions, changing PO intake, and difficulty titrating for acute hyper/hypoglycemia. ADA recommends re-initiating outpatient oral agents 1-2 days prior to discharge if/when appropriate if they were held on admission. PLAN FOR INPATIENT GLYCEMIC CONTROL: * Hold outpatient oral diabetes medications * Basal insulin - increase * Lantus 50 units SC x 1 this morning (will attempt to transition to once daily Lantus in order to facilitate discharge) * Bolus insulin - continue * NovoLog per scale ACHS or Q6hrs while NPO * Goal Range: Low 110 mg/dL - High 140 mg/dL * Correction Factor: 10 mg/dL/unit * Nutritional / Prandial insulin per carb ratio of 1 unit per 4 grams CHO consumed PLAN FOR DISCHARGE: * HbA1c from this admission was 13.5%. Patient will require insulin upon discharge. Specific discharge recommendations to be made once BSGs are more controlled. * Patient agreeable to once daily Lantus - see addendum from pharmacy glycemic note on 09/03 * -At this point Lantus 50 units SC once daily is a reasonable place to start * Ensure patient has prompt outpatient follow-up with PCP for further diabetes management
[2020-09-04] MEDS ORDERED: INSULIN GLARGINE SOLOSTAR 100 UNITS/ML 3 ML PEN SC SCH ×2 (09:00→09:30)
[2020-09-04] MEDS: INSULIN ASPART 100 UNITS/ML 3 ML PEN SC SCH ×2 (09:19→13:04)
--- NOTE | 2020-09-04 09:37 | Discharge Summary ---
Date of Service September 04, 2020 Admission HPI Per Admitting Provider Torito Liao is a 50y/o M with PMH significant for T2DM, HTN, and HLD; who presented to the emergency department for concern for a wound on his behind that had been there over the previous four days. Four days ago, he initially noticed that his behind is sore and he noticed that this was more tender to touch and slightly warm. Then the following day he started to notice some clear discharge, with progression of this fluid into some white appearing discharge that sent him to [facility] where he was then sent to the hospital for IV antibiotics. Has no history of MRSA infections, no history of boils or abscesses that required to be opened or removed. No previous history of similar infections. Social history: smokeless tobacco user, no alcohol, no recreational or illict drug use Sexual history: no h/o STIs/HIV, 3 sexual partners in last 10 years (female only) Admission Exam Per Admitting Provider Constitutional: WD/WN, vitals as above Eyes: PERRL, conjunctivae normal, anicteric sclerae Respiratory: normal respiratory effort, lungs clear to auscultation Cardiovascular: Rate/Rhythm: regular rate and regular rhythm Heart Sounds: no gallop, no murmur and no cardiac rub Vessels: normal peripheral pulses; no JVD Gastrointestinal (Abdomen): normal bowel sounds, soft, nontender, no hepatosplenomegaly Skin: + ulcer and + induration right gluteal fold with erythema, induration, superficial ulceration, and appearance of granulation tissue, no purulent drainage expressed Psychiatric: Orientation: alert and oriented x 3 Principal Diagnosis buttock abscess uncontrolled DM2 Discharge Exam Constitutional: WD/WN, vitals as above Eyes: PERRL, conjunctivae normal, anicteric sclerae Respiratory: normal respiratory effort, lungs clear to auscultation Cardiovascular: Rate/Rhythm: regular rate and regular rhythm Heart Sounds: no murmur Vessels: normal peripheral pulses Gastrointestinal (Abdomen): normal bowel sounds, soft, nontender, no hepatosplenomegaly Skin: Superficial dime-sized ulceration with granulation tissue, overlying ~ 4cm area of erythema, decreased in size from yesterday. Psychiatric: Orientation: alert and oriented x 3 Discharge Data Allergies Allergy/AdvReac Type Severity Reaction Status Date / Time Penicillins Allergy Unknown swelling Verified 09/01/20 14:33 Consultations 09/01/20 16:36 ED Decision to Admit Stat 09/01/20 20:36 Consult General Surgery Routine Ordered Studies 09/01/20 13:55 CT pelvis w/IV con only Stat Diabetes Follow up Diabetes Follow-up Needed for HgbA1c >9% Hospital Course (1) Type 2 diabetes mellitus: 50 yo M PMHx DM2, HTN, HLD admitted for right buttock cellulitis and found to have poor DM2 control with significant elevation of Hgb A1c. Cellulitis: - Granulation tissue over right gluteal fold, improvement in erythema during admission course. - Wound culture grew MSSA. - Transitioned Daptomycin/Zosyn to Augmentin, to continue for ten more days following discharge. - Blood cultures negative to date. - Gen Surg consulted: no indication for surgical treatment at this time. - PCP follow up Thursday/Thursday to follow abscess and BSG. DM2: - Continue to hold home oral regimen. Reports metformin at home, has been on several oral medications outpatient with side effects. - A1c this admission 13.5. - This admission had extensive discussion regarding dietary modification for BSG control, and checking home BSG 2 hours after meals to help him understand which meals are carbohydrate heavy. - Lantus 60units qHS, Novolog 20u with meals on discharge. HTN: - Continue lisinopril daily. HLD: - Continue Atorvastatin 40mg daily. Hypomagnesemia: - Magnesium 1.7 on 09/02, repleted with Mg Sulfate 2grams. Hypokalemia: - K 3.3 this AM, repleted with 40meq KCl PO. - Normal levels today. (2) Cellulitis of right buttock: (3) Hyperlipidemia: (4) Hypertension: Total Time Total Time Spent Total Time Spent (In Minutes): <30 Discharge Plan Discharge Items Patient Disposition: Home - Self-Care Reason For Visit: CELLULITIS Discharge Diagnosis: buttock abscess/cellulitis uncontrolled diabetes Activity: Per Instructions section Non-emergency contact: Primary Care Provider Call non-emergency contact if: you have any medication questions, your temperature is above 101, your wound has increased redness and your wound pain has increased Follow-up/Referrals: Opal Wang CRNP [Primary Care Provider] - (follow up or (upcoming thursday or following thursday)) Diet: Carb Consistent or DM2 Addtl Attending Provider Instructions: You were admitted to the hospital for a buttock infection, and you were started on IV antibiotics. While you were here it was noted that your sugars were extremely high, and your A1c (the 3 month blood sugar number) was 13.5; this means that your sugars have been really high for quite some time. Because high sugars cause blocked arteries over time in the heart, brain, kidneys, feet, and eyes, it is important that you continue to decrease your carbohydrates at home in order to continue to decrease that sugar. Check your sugar about 2 hours after eating to see if your meal caused your sugar to go up very high. This is a way to check your work to see if your meal was carbohydrate heavy. You were started on insulin therapy to help control your sugars better. This in combination with diet will help in the parts counterman to decrease your sugars. At home, you will take Lantus (a long acting insulin) 60 units every day at nighttime before bed. You will also take 20 units of Novolog (short acting insulin) with each meal. You will also take your Augmentin antibiotic (one pill every 12 hours) until the prescription is gone. All medications have been sent to the [facility] on [facility] [place]. Please follow up with your primary care doctor with regard to changing medications and adjusting diet, as well as to follow your buttock abscess/cellulitis, either Thursday or Thursday. If you have shortness of breath, chest pain, please seek urgent medical evaluation. Pending Studies at Discharge: No Stand-Alone Forms: Work/School Release (Inpt) Medications and DC Order Prescriptions: New amoxicillin-pot clavulanate [Augmentin] 875-125 mg Tablet 1 tab PO BIDM 10 Days Qty: 20 RF: 0 insulin aspart U-100 [Novolog Flexpen U-100 Insulin] 100 unit/mL (3 mL) Insulin Pen 20 unit SC ACHS Qty: 15 RF: 0 Lantus Solostar U-100 Insulin 100 unit/mL (3 mL) Insulin Pen 60 unit SC QAM Qty: 15 RF: 0 (DME) OneTouch Verio test strips Strip See Rx Instructions .ROUTE .MEDSUPPLY Qty: 10 RF: 0 (DME) lancets 32 gauge misc See Rx Instructions .ROUTE .MEDSUPPLY Qty: 100 RF: 0 (DME) lancets [OneTouch Delica Lancets] 30 gauge misc See Rx Instructions .ROUTE .MEDSUPPLY Qty: 100 RF: 0 (DME) pen needle, diabetic [Pen Needle] 32 gauge x 5/32" needle See Rx Instructions .ROUTE .MEDSUPPLY Qty: 50 RF: 0 Continued atorvastatin 40 mg tablet 40 mg PO DAILY Qty: 90 RF: 0 lisinopril 10 mg tablet 10 mg PO DAILY RF: 0 Discontinued empagliflozin 10 mg tablet 10 mg PO DAILY Qty: 30 RF: 0 glimepiride 4 mg tablet 4 mg PO DAILY Qty: 90 RF: 0 metformin 500 mg tablet 1,000 mg PO BID Qty: 360 RF: 0 Discharge Orders: Discharge Order (Routine); Ordered 09/04/20 Ordered By: Bess Rios/Other Patient Handouts: Diabetes: Meal Planning, Diabetes Carbs Fats Protein Admission Data Admit Date/Time: 09/03/20 09:59 Attending Provider: Sky Newman Admit Provider: Juan Diego Briscoe Primary Care Provider: Opal Wang Other Providers: Roosevelt Potter ; Fernie Hernandez ; Haley Bajwa Other Interventions: Discharge Summary Assessment (RN) Last Done: 09/04/20 14:53 Supervising Physician Co-Signing Physician Notes I personally examined the patient and verified all muñiz points of history and exam, discussed case, and agree with decision making with Dr Tapia. feeling up to going home vitals noted nad heent nc at mmm breathing unlabored no accessory muscles good effort skin shows R buttock dressed no tracking erythema buttocks cellulitis present on admission - no abscess fortunately spontaneously draining. sensitive bacteria from culture - doing well on PO abx uncontrolled DM2 - discussed pathophys of DM2 and critical role of lifestyle in controlling/improving situation. agree for now insulin needed - educated on basal bolus in this regard otherwise as above Resident Activity Tracking Resident Involvement: Resident Care Provided Care Provided: Adult Hospital Medicine
--- NOTE | 2020-09-04 18:32 | Billing Data ---
Date of Service September 04, 2020 Coding Level of Care Code D/C Day Management <30 mins
== END 2020-09-04 15:30 | disposition home or self-care (01) ==
LOC: ED 13:21 → 3N 13:21 → SUATTDRO 18:19 → 3N 20:26